=== PATIENT | male | born 1980 | race Caucasian/White ===

== ENCOUNTER 2020-09-18 11:30 | Outpatient (REF) | payer MEDICAID, SELFPAY | END 2020-09-18 11:31 | disposition home or self-care (01) | LOC: HO.LAB 11:30 | PROVIDERS: Visit Provider Internal Medicine | DX: Z20.822 Contact with and (suspected) exposure to COVID-19 (principal) | CPT/HCPCS: 36415; C9803; U0003 ==

== ENCOUNTER 2020-10-05 14:09 | Outpatient (REF) | payer MEDICAID, SELFPAY | END 2020-10-05 14:10 | disposition home or self-care (01) | LOC: HO.LAB 14:09 | PROVIDERS: Visit Provider Internal Medicine | DX: Z20.822 Contact with and (suspected) exposure to COVID-19 (principal) | CPT/HCPCS: 36415; C9803; U0003; U0005 ==

== ENCOUNTER 2024-03-21 11:09 | Outpatient (REF) | payer MEDICAID, SELFPAY ==
--- NOTE | ~2024-03-21 | XR_ITS ---
EXAMINATION: XR KNEE LEFT XR KNEE RIGHT CLINICAL INFORMATION: Acute nontraumatic bilateral knee pain. COMPARISON: None TECHNIQUE: Right knee, 3 views and left knee, 3 views FINDINGS: Right knee: Bones, joints and soft tissues have a normal appearance. No evidence of arthritic disease, fracture or joint effusion. Left knee: Bones, joints and soft tissues have a normal appearance. XR/XR knee RT 3V IMPRESSION: Normal radiographic examination of both knees.
--- NOTE | ~2024-03-21 | XR_ITS ---
EXAMINATION: XR KNEE LEFT XR KNEE RIGHT CLINICAL INFORMATION: Acute nontraumatic bilateral knee pain. COMPARISON: None TECHNIQUE: Right knee, 3 views and left knee, 3 views FINDINGS: Right knee: Bones, joints and soft tissues have a normal appearance. No evidence of arthritic disease, fracture or joint effusion. Left knee: Bones, joints and soft tissues have a normal appearance. XR/XR knee LT 3V IMPRESSION: Normal radiographic examination of both knees.
[2024-03-21 13:01] LABS: MANUAL DIFF FLAG NO
[2024-03-21 13:23] LABS: Basophils Percent Auto 0.3 % (0-2); Eosinophils Absolute Auto 0.1 X10*3/uL (0.0-0.4); Eosinophils Percent Auto 1.5 % (0-4); Hematocrit 48.4 % (42.0-52.0); Hemoglobin 16.6 g/dl (14.0-18.0); Imm Gran Abs Auto 0.01 X10*3/uL (0.00-0.03); Imm Gran Pct Auto 0.3 % (0.0-0.4); Lymphocytes Absolute Auto 1.3 X10*3/uL (1.2-4.9); Lymphocytes Percent Auto 32.8 % (20-40); Mean Corpuscular HGB Conc 34.3 g/dl (31.0-36.0); Mean Corpuscular Volume 93.4 fL (80.0-98.0); Mean Platelet Volume 10.8 fL (9.4-12.4); Monocytes Absolute Auto 0.5 X10*3/uL (0.1-1.2); Monocytes Percent Auto 11.7 % (2-11); Neutrophils Absolute Auto 2.1 x10*3/uL (2.0-8.3); Neutrophils Percent Auto 53.4 % (45-73); Platelet Count 225 X10*3/uL (160-400); Red Blood Count 5.18 X10*6/uL (4.60-5.80); Red Cell Distribution Width 11.9 % (11.0-16.0); White Blood Count 3.9 X10*3/uL (4.8-10.8)
[2024-03-21 13:34] LABS: Alanine Aminotransferase 15 U/L (0-40); Albumin Level 4.7 g/dL (3.5-5.0); Alkaline Phosphatase 79 U/L (39-117); Anion Gap 14 (12-20); Aspartate Amino Transferase 28 U/L (5-37); Bilirubin Total 0.5 mg/dL (0.0-1.0); Blood Urea Nitrogen 8 mg/dL (9-16); Calcium 9.6 mg/dL (8.4-10.2); Carbon Dioxide 28 mmol/L (22-29); Chloride 102 mmol/L (96-108); Estimated Glomerular Filt Rate > 60; Glucose Random 77 mg/dL (60-115); Potassium 4.2 mmol/L (3.3-5.1); Sodium 140 mmol/L (135-145); Total Protein 7.5 g/dL (6.5-8.0)
== END 2024-03-21 11:10 | disposition home or self-care (01) ==
LOC: HO.HHCL 11:09
PROVIDERS: Visit Provider Family Medicine
DX: M25.561 Pain in right knee (principal); M25.562 Pain in left knee
CPT/HCPCS: 36415; 73562; 80053; 85025

== ENCOUNTER 2024-10-11 08:43 | Outpatient (REF) | payer MEDICAID, SELFPAY ==
[2024-10-11 14:41] LABS: Alanine Aminotransferase 19 U/L (0-40); Albumin Level 4.6 g/dL (3.5-5.0); Alkaline Phosphatase 84 U/L (39-117); Anion Gap 12 (12-20); Aspartate Amino Transferase 33 U/L (5-37); Bilirubin Total 0.5 mg/dL (0.0-1.0); Blood Urea Nitrogen 10 mg/dL (9-16); Calcium 9.5 mg/dL (8.4-10.2); Carbon Dioxide 28 mmol/L (22-29); Chloride 102 mmol/L (96-108); Cholesterol 186 mg/dL (<200); Estimated Glomerular Filt Rate > 60; Glucose Random 68 mg/dL (60-115); HDL Cholesterol 73 mg/dL (>40); LDL Cholesterol Calculated 92 mg/dL (<100); Potassium 4.5 mmol/L (3.3-5.1); Sodium 137 mmol/L (135-145); Total Protein 7.7 g/dL (6.5-8.0); Triglycerides 107 mg/dL (<150)
[2024-10-11 14:42] LABS: Estimated Average Glucose 100 mg/dL; Hemoglobin A1C 135.0362 umol/L; Hemoglobin A1c % 5.1 % (<6.0); Total Hemoglobin (HGBA1C) 4151.7419 umol/L
[2024-10-11 15:01] LABS: TSH reflex Free T4 1.02 uIU/mL (0.32-4.0)
[2024-10-12 03:49] LABS: HIV AB/AG Nonreactive (Nonreactive); HIV Num 1 0.06 S/CO (0.00-0.99); ~HepC Num1 0.07 S/CO (0.00-0.79); ~Hepatitis C Antibody Nonreactive (Nonreactive)
== END 2024-10-11 08:44 | disposition home or self-care (01) ==
LOC: HO.CHCLDS 08:43
PROVIDERS: Visit Provider Internal Medicine
DX: Z00.00 Encounter for general adult medical examination without abnormal findings (principal)
CPT/HCPCS: 36415; 80053; 80061; 83036; 84443; 86803; 87389

== ENCOUNTER 2024-12-27 08:09 | Outpatient (REF) | payer MEDICAID, SELFPAY ==
[2025-01-02 12:44] LABS: Testosterone, Free 68.9 pg/mL (35.0-155.0); Testosterone, Total 355 ng/dL (250-1100)
== END 2024-12-27 08:10 | disposition home or self-care (01) ==
LOC: HO.CHCLDS 08:09
PROVIDERS: Visit Provider Internal Medicine
DX: R68.82 Decreased libido (principal)
CPT/HCPCS: 36415; 84402; 84403

== ENCOUNTER 2025-05-30 08:51 | Outpatient (REF) | payer MEDICAID, SELFPAY ==
--- OUTSIDE RECORDS SUMMARY | 2024-09-30 12:02 | XMS_ITS ---
Author Organization [facility] Address [address] [place] [address] Care Team Providers Care Kerrick Kleaner Operator Name Role Phone [facility] Primary Care Provider [phone] [facility], [facility] Unavailable [phone] REASON FOR VISIT Looking for appt Encounters Encounter Location Date Provider Diagnosis [facility] [address] [place], [place] [phone] 09/30/2024 [facility] Plan Of Treatment No Information Progress Notes * Christy TAPIAOB:1980 (44 yo F)Acc No.[id number]:09/30/2024 Patient: Marisel BRUNER :1980 A ge:44 Y S ex:Female Address:[address] [place] [address], [phone] * * Date:
--- OUTSIDE RECORDS SUMMARY | 2025-05-30 09:18 | XMS_ITS | Patient Health Record ---
Author Organization [facility] Address [address] [place] [address] Care Team Providers Care Software Licensing Specialist Name Role Phone [facility] Primary Care Provider [facility], [facility] Unavailable [phone] Reason For Referral No Information Encounters Encounter Location Date Provider Diagnosis [facility] [address] [place], [place] [phone] 09/30/2024 [facility] Plan Of Treatment No Information Insurance Providers Payer Name Payer Address Payer Phone Subscriber Number Group Number Insured Name Patient Relationship to Insured Coverage Start Date Coverage End Date [employer] [address] [place] [phone] [id number] Marisel Day Self - patient is the insured
[2025-05-30 15:08] LABS: Alanine Aminotransferase 26 U/L (0-40); Albumin Level 2.4 g/dL (3.5-5.0); Alkaline Phosphatase 89 U/L (39-117); Anion Gap 10 (12-20); Aspartate Amino Transferase 42 U/L (5-37); Blood Urea Nitrogen 13 mg/dL (9-16); Calcium 9.5 mg/dL (8.4-10.2); Carbon Dioxide 32 mmol/L (22-29); Chloride 103 mmol/L (96-108); Estimated Glomerular Filt Rate > 60; Magnesium 2.2 mg/dL (1.6-2.6); Potassium 4.7 mmol/L (3.3-5.1); Sodium 140 mmol/L (135-145); Total Protein 5.5 g/dL (6.5-8.0)
[2025-05-30 15:26] LABS: Folate 12.0 ng/mL (> or = 4.0); Vitamin B12 376 pg/mL (200-900)
== END 2025-05-30 08:52 | disposition home or self-care (01) ==
LOC: HO.CHCLDS 08:51
PROVIDERS: Visit Provider Internal Medicine
DX: F10.20 Alcohol dependence, uncomplicated (principal)
CPT/HCPCS: 36415; 80053; 82607; 82746; 83735; 84100; 84443

== ENCOUNTER 2025-07-03 11:14 | Outpatient (AMB) | payer SELFPAY ==
--- OUTSIDE RECORDS SUMMARY | 2024-09-30 11:02 | XMS_ITS ---
Author Organization [facility] Address [address] [place] [address] Care Team Providers Care Petroleum Analyst Name Role Phone [facility] Primary Care Provider [phone] [facility], [facility] Unavailable [phone] REASON FOR VISIT Looking for appt Encounters Encounter Location Date Provider Diagnosis [facility] [address] [place], [place] [id number] 09/30/2024 [facility] Plan Of Treatment No Information Progress Notes * Christy TAPIAOB:1980 (44 yo F)Acc No.[id number]:09/30/2024 Patient: Marisel BRUNER :1980 A ge:44 Y S ex:Female Address:[address] [place] [address], [phone] * * Date:
--- NOTE | 2025-07-03 11:18 | MHC.OFFVIS ---
Intake Visit Reasons: ICU TECH Intake Note: New patient presents for PVD. States it has been two months since his leg started cramping and swelling but has felt odd sensations and pain for about 4 months. Accompanied by: Other Relationship Allergies No Known Allergies Allergy (Verified 07/03/25 11:23) HPI HPI ICU TECH: Details: Pleasant 44-year-old gentleman patient presents for painful varicose veins. Complaints include pain over varicosities, swelling of lower extremities, cramping, fatigue, and heaviness of the lower extremities. 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 It is noted more so in left leg. Patient denies any previous venous surgery or injections. Patient denies any history of DVT/ PE. Patient denies any history of phlebitis. Trial of compression includes - [id number] They now present for vascular evaluation regarding their varicose veins. Review of Systems Const All systems reviewed & are unremarkable except as noted in HPI and below Reports no additional complaints ENT Reports Normal hearing present Card Denies chest pain, Denies chest pain at rest, Denies chest pain with activity and Denies pedal edema Resp Denies cough GI Denies abdominal pain Musc Denies abnormal gait, Denies muscle cramps and Denies radiating pain into limb Skin/Breast Denies skin ulcer and Denies wounds Neuro Reports Normal hearing present and Denies abnormal gait Psych Reports no additional complaints Physical Exam Const General: cooperative, healthy appearing and comfortable Orientation/consciousness: oriented to person, oriented to place and oriented to time HEENT Head: Yes normal to inspection Neck Neck: Yes normal visual inspection Carotids: no bruits Chest Chest palpation & inspection: normal inspection of the chest Resp Effort & Inspection: normal respiratory effort and able to speak in complete sentences Auscultation: clear to auscultation bilaterally, no crackles, no rales, no rhonchi and no wheezes Cardio Other: Bilateral palpable dorsalis pedis pulses Rate: regular rate Rhythm: regular rhythm Heart sounds: S1 normal heart sound present and S2 normal heart sound present Bruits: no carotid bruits Peripheral pulses: Peripheral pulses 2+ throughout GI Inspection: Yes normal to inspection Skin Wounds: no wounds Hair: normal Neuro General: oriented to person, oriented to place and oriented to time Cranial nerves: Yes CN's II-XII intact bilaterally and Yes Normal hearing present Cognition (Neuro): normal cognition Motor exam (neuro): 5/5 motor strength present throughout Extrem Other: venous exam: +1 edema with spider telangiectasias General: No clubbing, No cyanosis and Yes edema Psych Appearance: grossly normal Mental Status: mental status grossly normal Speech and movement: Normal speech and movement present Assessment & Plan Assessment & Plan (1) Varicose veins of right lower extremity with inflammation: Code(s): I83.11 - Varicose veins of right lower extremity with inflammation Category: Medical Plan: In short, the patient has evidence of venous insufficiency. I have discussed the pathophysiology with the patient. In addition I have provided informational material regarding venous disease to the patient. We have discussed conservative measures including compression, elevation, and exercise. I have also provided a handout regarding appropriate use of compression stockings and where to purchase good compression stockings as well. I have taken the liberty of ordering venous insufficiency testing with the patient. They will follow up with me after testing. The patient had an opportunity to ask questions regarding the treatment plan. All questions were answered. Imaging studies, laboratory studies and physical exam results were discussed and reviewed in detail. No major barriers to understanding were identified. The patient expressed understanding and agreement with the above treatment plan. The patient is aware they should contact our office by phone for worsening of the current condition or the appearance of new symptoms. Thank you for allowing me to participate in the vascular care of this patient. If you have any questions or concerns regarding the treatment for the above condition please do not hesitate to contact me. The office telephone contact is [phone]. This note is constructed using voice recognition software. While every effort has been made to ensure accuracy, software security architect errors may have been included. Thank you for allowing me to participate in the care of your patient. Yours sincerely, Bhargav Mayen MD, FACS, R.P.V.I. Orders: Orders US venous duplex LE BI Today I83.11 - Varicose veins of right lower extremity with inflammation Coding Level of Care Code New Pt Level 4 (18059) Diagnoses Varicose veins of right lower extremity with inflammation I83.11
--- OUTSIDE RECORDS SUMMARY | 2025-07-03 13:57 | XMS_ITS | Clinical Summary ---
Author Organization [facility] Address [address] [place] [address] Phone Care Team Providers Care New Vehicle Sales Consultant Name Role Phone Physician, Pcp Unknown Primary Care Provider Marilee vailable Allergies No known active allergies Medications diphenhydrAMINE (BENADRYL) 25 mg tablet Take 1 capsule by mouth every 4-6 hours as needed for itching. 24 tablet 07/17/2024 Active naproxen (NAPROSYN) 500 mg tablet Take 1 tablet (500 mg total) by mouth 2 (two) times a day with meals. 60 each 11/02/2024 Active methocarbamoL (ROBAXIN) 750 mg tablet Take 1 tablet (750 mg total) by mouth 4 (four) times a day for 10 days. 40 each 11/02/2024 Active Active Problems Problem Noted Date Diagnosed Date Current moderate episode of major depressive disorder without prior episode ([facility] V24, [facility] V28) 02/20/2025 Alcohol dependence ([facility] V24, [facility] V28) Low libido 10/10/2024 Urticaria 08/15/2024 Elevated BP without diagnosis of hypertension Encounters Date Type Department Care Team Description 05/21/2025 7:24 AM EDT - 05/21/2025 9:48 AM EDT Emergency [facility] Emergency [address] [place] [phone] Left leg pain (Primary Dx); Rudd cyst, left Discharge Disposition: Home or Self Care 04/26/2025 12:18 PM EDT - 04/26/2025 2:33 PM EDT Emergency [facility] Emergency [address] [place] [address] Pharyngitis, unspecified etiology (Primary Dx) Discharge Disposition: Home or Self Care from Last 3 Months Social History Tobacco Use Types Packs/Day Years Used Date Smoking Tobacco: Every Day Cigarettes Smokeless Tobacco: Never Tobacco Cessation:Ready to Q uit: Not Asked; Counseling Given: Not Answered Alcohol Use Standard Drinks/Week Comments Yes 35 (1 standard drink = 0.6 oz pu re alcohol) Sex and Gender Information Value Date Recorded Sex Assigned at Male 08/28/2024 7:01 PM EST Legal Sex Male 6:47 PM EST Gender Identity Male 08/28/2024 7:01 PM EST Sexual Orientation Straight 08/28/2024 7: 01 PM EST Obstetrics History Last Filed Vital Signs Vital Sign Reading Time Taken Comments Blood Pressure 120/90 05/21/2025 7:20 AM EDT Pulse 88 05/21/2025 7:20 AM EDT Temperature 36.4 C (97.6 F) 05/21/2025 7:20 AM EDT Respiratory Rate 17 05/21/2025 7:20 AM EDT Oxygen Saturation 97% 05/21/2025 7:20 AM EDT Inhaled Oxygen Concentration - - Weight 58.1 kg (128 lb) 05/21/2025 7:20 AM EDT Height 180.3 cm (5' 11 ) 05/21/2025 7:20 AM EDT Body Mass Index 17.85 05/21/2025 7:20 AM EDT Plan of Treatment Health Maintenance Due Date Last Done Comments DTaP,Tdap,and Td Vaccines (1 - Tdap) 2000 Hepatitis A Vaccines (1 of 2 - Risk 2-dose series) 2000 Hepatitis B Vaccines (1 of 3 - 19+ 3-dose series) 2000 Pneumococcal Vaccine: Pediat rics (0 to 5 Years) and At-Risk Patients (6 to 49 Years) (1 of 2 - PCV) 2000 HPV Vaccines (1 - 3-dose SCD M series) 2008 Social Influencers of Health Screening 07/30/2022 Depression Screening 08/28/2024 COVID-19 Vaccine ( - 2023-2 5 season) 2025 Influenza Vaccine (#1) 2025 Cholesterol Screening (Lipid Panel) 10/11/2029 10/11/2024 RSV Immunization Adult Patie nts (1 - 1-dose 75+ series) 2056 HIV Screening Completed 10/11/2024 Hepatitis C Screening Completed 10/11/2024 HIB Vaccines Aged Out No longer eligi ble based on patient's age to complete this topic IPV Vaccines Aged Out No longer eligi ble based on patient's age to complete this topic MMR Vaccines Aged Out No longer eligi ble based on patient's age to complete this topic Meningococcal ACWY Vaccine Aged Out N o longer eligible based on patient's age to complete this topic Meningococcal B Vaccine Aged Out No l onger eligible based on patient's age to complete this topic RSV Immunization Patients Un rich 20 months Aged Out No longer eligible b ased on patient's age to complete this topic Varicella Vaccines Aged Out No longer eligible based on patient's age to complete this topic Procedures Procedure Name Priority Date/Time Associated Diagnosis Comments XR KNEE 4+ VIEWS LEFT STAT 05/21/2025 8:44 AM EDT VAS US DUPLEX LOWER EXT VENOUS LEFT STAT 05/21/2025 8:16 AM EDT Left leg pain CULTURE THROAT STAT 04/26/2025 1:28 PM EDT RAPID STREP A SCREEN STAT 04/26/2025 1:28 PM EDT HVUA-PRX1-CEA, QUALITATIVE REAL-TIME RT-PCR, INTERNAL LAB STAT 04/26/2025 1:28 PM EDT from Last 3 Months Results * XR Knee 4+ Views Left (05/21/2025 8:44 AM EDT) Anatomical Region Laterality Modality Lower Extremities, Knee Left Radiogra [facility] 05/21/2025 9:12 AM EDT Impressions 05/21/2025 9:13 AM EDT No fracture or dislocation. [id number] -------- FINAL REPORT -------- Dictated By: Cathy Gil Dictated Date: 05/21/2025 09:12 ET Assigned Physician: Cathy Gil Reviewed and Electronically Signed By: Cathy Gil Signed Date: 05/21/2025 09:13 ET Workstation ID: [id number] Transcribed By: Self Edit Transcribed Date: 05/21/2025 09:12 ET Narrative 05/21/2025 9:13 AM EDT INDICATION: Knee pain FINDINGS: 4 views of the left knee were obtained. No prior studies available for comparison. Bones: No fracture or dislocation. Soft tissues: No soft tissue swelling. No joint effusion. Procedure Note Cathy Gil MD - 05/21/2025 INDICATION: Knee pain FINDINGS: 4 views of the left knee were obtained. No prior studiesavailable for comparison. Bones: No fracture or dislocation. Soft tissues: No soft tissue swelling. No joint effusion. IMPRESSION: No fracture or dislocation. [id number] -------- FINAL REPORT -------- Dictated By: Cathy Gil Dictated Date: 05/21/2025 09:12 ET Assigned Physician: Cathy Gil Reviewed and Electronically Signed By: Cathy Gil Signed Date: 05/21/2025 09:13 ET Workstation ID: [id number] Transcribed By: Self Edit Transcribed Date: 05/21/2025 09:12 ET us Brian [facility] IM[facility] XR PROCEDURES Final R esult * Vascular US duplex lower extremity venous left (05/21/2025 8:16 AM EDT) Anatomical Region Laterality Modality Vascular, Abdomen Ultrasound 05/21/2025 8:41 AM EDT Narrative 05/21/2025 8:42 AM EDT INDICATION: leg pain and swelling. FINDINGS: A duplex venous ultrasound was performed of the left lower extremity. The common femoral, femoral and popliteal veins demonstrate color-flow with augmentation and compressibility. The visualized calf veins also demonstrate color-flow. Slow flow noted within the left femoral vein. CONCLUSION: No evidence of deep vein thrombosis in left lower extremity. -------- FINAL REPORT -------- Dictated By: Cathy Gil Dictated Date: 05/21/2025 08:41 ET Assigned Physician: Cathy Gil Reviewed and Electronically Signed By: Cathy Gil Signed Date: 05/21/2025 08:42 ET Workstation ID: [id number] Transcribed By: Self Edit Transcribed Date: 05/21/2025 08:41 ET Procedure Note Cathy Gil MD - 05/21/2025 INDICATION: leg pain and swelling. FINDINGS: A duplex venous ultrasound was performed of the left lowerextremity. The common femoral, femoral and popliteal veins demonstratecolor-flow with augmentation and compressibility. The visualized calfveins also demonstrate color-flow. Slow flow noted within the left femoralvein. CONCLUSION: No evidence of deep vein thrombosis in left lower extremity. -------- FINAL REPORT -------- Dictated By: Cathy Gil Dictated Date: 05/21/2025 08:41 ET Assigned Physician: Cathy Gil Reviewed and Electronically Signed By: Cathy Gli Signed Date: 05/21/2025 08:42 ET Workstation ID: [id number] Transcribed By: Self Edit Transcribed Date: 05/21/2025 08:41 ET Maximilian Huitron MD CV VASCULAR PROCEDURES Final Res ult * RHKA-CPL1-SIC, qualitative RT-PCR, internal lab (04/26/2025 1:28 PM EDT) SARS COV-2 Not Detected Not Detected LAB MICROBIOLOGY METHOD 04/26/2025 2:25 PM EDT [facility] Swab Both anterior nares / Unknown Non-blood Collection / Unknown 04/26/2025 1:28 PM EDT 04/26/2025 1:50 PM EDT Narrative [facility] - 04/26/2025 2:25 PM EDT Disclaimer: The manner in which this information is used to guide patient care is the responsibility of the healthcare provider. Testing was performed using the [employer] GeneXpert Xpress CoV-2 Plus PCR Assay. This test has been authorized by the FDA under an Emergency Use Authorization (EUA). This test is only authorized for the duration of time the declaration that circumstances exist justifying the authorization of the emergency use of in vitro diagnostic tests for detection of SARS-CoV-2 virus and/or diagnosis of COVID-19 infection under section 564(b)(1) of the Act, 21 U.S.C. 360bbb-3 (b)(1), unless the authorization is terminated or revoked sooner. Reference Range: Not Detected Fact sheet for Healthcare providers can be found at: https://www.fda.gov/media/483311/download Fact sheet for Healthcare patients can be found at: Http;//www.fda.gov/media/883389/download Ish[facility] LAB MICROBIOLOGY - GENERAL ORDERABLES Final Result Performing Organization Address City/[facility]/ZIP Co de Phone Number [facility] [address] [place] [address], * Rapid Strep A Screen (04/26/2025 1:28 PM EDT) Strep A Ag Negative Negative, Invalid 04/26/2025 2:04 PM EDT [facility] Comment:Refer to Throat Cult ure. Swab Structure of anterior region of neck / Unknown Non-blood Collection / Unknown 04/26/2025 1:28 PM EDT 04/26/2025 1:50 PM EDT [facility] LAB MICROBIOLOGY - GENERAL ORDERABLES Final Result Performing Organization Address [facility]/ZIP Co de Phone Number [facility] [address] [place] [address], * Culture throat (04/26/2025 1:28 PM EDT) Culture, Throat No pathogens isolated. 04/28/2025 11:21 AM EDT [facility] Swab Structure of anterior region of neck / Unknown Non-blood Collection / Unknown 04/26/2025 1:28 PM EDT 04/26/2025 1:50 PM EDT us Ishmael [facility] LAB MICROBIOLOGY - GENERAL ORDERABLES Final Result [facility] [address] [place] [address], from Last 3 Months Insurance [facility] [employer] [address] [place] [address] Care Teams New Vehicle Sales Consultant Relationship Specialty Start Date End Date Physician, Pcp Unknown PCP - General 04/26/25
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
--- OUTSIDE RECORDS SUMMARY | 2025-07-03 13:57 | XMS_ITS | Patient Health Record ---
Author Organization [facility] Address [address] [place] [address] Care Team Providers Care Agricultural Services Director Name Role Phone [facility] Primary Care Provider [facility], [facility] Unavailable [phone] Reason For Referral No Information Encounters Encounter Location Date Provider Diagnosis [facility] [address] [place], [place] [id number] 09/30/2024 [facility] Plan Of Treatment No Information Insurance Providers Payer Name Payer Address Payer Phone Subscriber Number Group Number Insured Name Patient Relationship to Insured Coverage Start Date Coverage End Date [employer] [address] [place] [phone] [id number] Marisel Day Self - patient is the insured
--- OUTSIDE RECORDS SUMMARY | 2025-07-03 13:57 | XMS_ITS | Encounter Summary ---
Author Organization [employer] Address [address] [facility] 7t [place] [address] Care Team Providers Care Genetic Physician Name Role Phone Vikram Solis MD Primary Care Prov ider Reason for Visit * Reason Onset Date Comments Med Refill 11/14/2024 Encounter Details Date Type Department Care Team (Late st Contact Info) Description 11/14/2024 Telephone [facility] MEDICINE [address] [place] [address] Vikram Solis MD [address], [place] [phone] Med Refill Social History Tobacco Use Types Packs/Day Years [...] encounter Miscellaneous Notes * Telephone Encounter - Gurmeet Quiles - 11/14/2024 10:27 AM EDT TC from pt requesting medication refill. Medications needing refill : predniSONE (Deltasone) 10 MG tablet To be sent to: [facility]/pharmacy #[id number] - [place], [place] - [address] [place] [address] documented in this encounter Plan of Treatment Not on file documented as of this encounter Visit Diagnoses Not on filedocumented in this encounter Additional Health Concerns Assessment Noted Time PHQ-9 Depression Total Score: 0 08/15/20 8:58 AM EST documented as of this encounter Care Teams Genetic Physician Relationship Specialty Start Date End Date Vikram Solis MD [address] [place] [phone] PCP - General Internal Medicine 08/15/24 documented as of this encounter
--- OUTSIDE RECORDS SUMMARY | 2025-07-03 13:58 | XMS_ITS | Clinical Summary ---
Author Organization [employer] Address [address] [facility] 7t [place] [address] Care Team Providers Care Plywood Patcher Name Role Phone Vikram Solis MD Primary Care Prov ider Allergies No known active allergies Medications * This document contains information received from the source organization and may not represent a complete record from that organization. celecoxib (CeleBREX) 100 MG capsuleIndicati ons:Neck pain,Strain of neck muscle, initial encounter,Strai n of muscle, fascia and tendon of lower back, initial encounter,Contu ena of soft tissue TAKE 1 CAPSULE BY MOUTH TWICE A DAY 60 capsule 12/03/2024 Active benzocaine-ment hol (Chloraseptic) 6-10 MG lozengeIndicati ons:Sore throat (viral) Dissolve 1 lozenge in the mouth every 2 (two) hours if needed for sore throat. 100 lozenge 04/29/2025 04/29/20 26 Active meloxicam (Mobic) 15 MG tablet Take 1 tablet (15 mg) by mouth Once per day. 30 tablet 11 05/22/2025 05/22/20 26 Active gabapentin (Neurontin) 100 MG capsule Take 3 capsules (300 mg) by mouth every 8 (eight) hours. 270 capsule 1 05/22/2025 07/21/20 25 Active thiamine (Vitamin B-1) 100 MG tablet Take 1 tablet (100 mg) by mouth Once per day. 90 tablet 3 05/22/2025 05/22/20 26 Active folic acid (Folvite) 1 MG tablet Take 1 tablet (1 mg) by mouth Once per day. 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 Exam within normal limits Testing negative for Covid, Flu and Strep Likely viral etiology after recent trip Plan: Supportive measures, Throat lozenges, Tylenol PRN Asked to come back if symptoms worsen or do not improve Excuse for work given Current moderate episode of major depressive disorder without prior episode ([facility]) 02/20/2025 Assessment & Plan (05/29/2025 10:06 AM EDT): No suicidal/homicidal ideas, not interested in BH therapy, follow up as needed Assessment & Plan (02/20/2025 1:16 PM EDT): Will refer to BH, no suicidal homicidal ideas Low libido 10/10/2024 Assessment & Plan (02/20/2025 1:15 PM EDT): Most likely related to his depression, testosterone levels were normal Assessment & Plan (12/02/2024 11:41 AM EDT): Testosterone not performed, will call with results Assessment & Plan (10/10/2024 9:49 AM EST): Will order testosterone levels, routine labs ordered Alcohol dependence 10/10/2024 Assessment & Plan (10/10/2024 9:51 AM EST): Patient drinks 6-8 beer daily and 4-6 nips daily, not interested in alcohol group referral, wants to cut by himself, risk were discussed, benefits of alcohol dependence discussed, follow up as needed Encounter for medical examination to establish c are 08/15/2024 Assessment & Plan (08/15/2024 9:33 AM EST): Last pcp foollow up over 6 years Er visit: June due to skin rash went to [facility] Hospitalizations:- Pmhx:- Pshx:- All:- Meds:- Urticaria 08/15/2024 Assessment & Plan (12/02/2024 11:40 AM EDT): Provided information to schedule follow up with rural carrier associate, call back as needed Assessment & Plan (08/15/2024 9:37 AM EST): Patient refers has to visit er 2-3 times a year due to a skin rash, lesions are not currently active, will refer to rural carrier associate Elevated BP without diagnosis of hypertension Encounters Date Type Department Care Team Description 06/17/2025 11:15 AM EDT Office Visit [facility] MED & PEDS [address] [place] [address] Vikram Solis MD Swelling (Primary Dx) 06/17/2025 Travel 06/16/2025 Telephone [facility] MED & PEDS [address] [place] [address] Vikram Solis MD chart prep 06/10/2025 Patient Outreach [address] [address] Vikram Solis MD Pre-visit Planning (Pre visit planning LVM ) 06/10/2025 Orders Only [facility] MED & PEDS [address] [place] [address] Vikram Solis MD Atherosclerosis of [place] artery of both lower extremities with intermittent claudication (Primary Dx) 05/29/2025 9:30 AM EDT Telemedicine [facility] MED & PEDS [address] [place] [address] Vikram Solis MD Uncomplicated alcohol dependence (CMS/HCC) (HCC) (Primary Dx); Current moderate episode of major depressive disorder without prior episode (CMS/HCC) (HCC) 05/29/[address] [place] [address] Vikram Solis MD 05/29/2025 Telephone [facility] MEDICINE [address] [place] [address] Vikram Solis MD 05/29/2025 Travel 05/28/2025 Telephone [facility] MED & PEDS [address] [place] [address] Vikram Solis MD chart prep 05/23/2025 Telephone [facility] MED & PEDS [address] [place] [address] Vikram Solis MD Nurse Triage 05/22/2025 10:45 AM EDT Office Visit [facility] MED & PEDS [address] [place] [address] Vikram Solis MD Claudication (CMS/HCC) (Primary Dx) 05/22/2025 Travel 05/22/2025 Telephone [facility] MED & PEDS [address] [place] [address] Vikram Solis MD Nurse Triage 04/29/2025 2:20 PM EDT Office Visit [facility] WALK[facility] [address] [place] [phone] Griffin Flower MD Sore throat (viral) (Primary Dx) 04/29/2025 Travel 04/29/2025 Telephone [facility] MEDICINE [address] [place] [address] Vikram Solis MD ER Follow-up from Last 3 Months Immunizations Immunization Administration Dates Next Due Tdap 05/07/2010 Family History Medical History Relation Name Comments Hypertension Brother No Known Problems Father Fibromyalgia Mother HTN Mother Hyperlipidemia Mother Hypertension Mother Hypothyroidism Mother Hypertension Son Cancer Neg Hx Relation Name Status Comments Brother Father Mother Son Social History Tobacco Use Types Packs/Day Years Used Date Smoking Tobacco: Every Day Cigarettes 0.5 25.8 Started: 1999 Passive Smoke Exposure: Current Smokeless Tobacco: Never Tobacco Cessation:Ready to Q uit: Not Asked; Counseling Given: Not Answered Alcohol Use Standard Drinks/Week Comments Yes 0 (1 standard drink = 0.6 oz pur e alcohol) beer 6 daily x 3 years Depression Answer Date Recorded Patient Health Questionnaire-9 Score 4 06/17/2025 Patient Health Questionnaire-9 Score 4 06/17/2025 Last PHQ-9: Questionnaire Data Not on file 1 Housing Stability Answer Date Recorded What is your housing situation today? I have milton mcgill 06/17/[address] you li ve. Do you have problems with any of the following? None of the above 06/17/2025 Food Insecurity Answer Date Recorded Within the past 12 months, y ou worried that your food would run out before you got money to buy more: Never True 06/17/2025 Within the past 12 months,th e food you bought just didn't last and you didn't have enough money to get more: Never True Transportation Answer Date Recorded In the past 12 months, has l ack of transportation kept you from medical appts, meetings, work or from getting things needed for daily living? No 06/17/2025 Utilities Answer Date Recorded In the past 12 months, has t he electric, gas, oil or water company threatened to shut off services in your home? No 06/17/2025 Depression Answer Date Recorded Patient Health Questionnaire-2 Score 1 06/17/2025 Internet Access Answer Date Recorded Internet Access Q1 Yes 06/17/2025 Internet Access Q2 Not on file 06/17/2025 Sex and Gender Information Value Date Recorded Sex Assigned at Male 01/18/2023 11:10 AM EDT Legal Sex Male 11:06 AM EDT Gender Identity Male 01/18/2023 11:10 AM EDT Sexual Orientation Straight 01/18/2023 11 :10 AM EDT Last Filed Vital Signs Vital Sign Reading Time Taken Comments Blood Pressure 128/82 06/17/2025 11:50 AM EDT Pulse 76 06/17/2025 11:50 AM EDT Temperature 36.6 C (97.8 F) 06/17/2025 11:50 AM EDT Respiratory Rate 20 06/17/2025 11:50 AM EDT Oxygen Saturation 97% 05/22/2025 10:56 AM EDT Inhaled Oxygen Concentration - - Weight 59.4 kg (131 lb) 06/17/2025 11:50 AM EDT Height 177.8 cm (5' 10 ) 06/17/2025 11:50 AM EDT Body Mass Index 18.8 06/17/2025 11:50 AM EDT Plan of Treatment Health Maintenance Due Date Last Done Comments Dental Oral Exam 1981 Dental Prophylaxis 1981 Dental X-Ray: Bitewings 1981 Dental X-Ray: Full Mouth 1981 Family Planning (PISQ) 1996 HPV Vaccines (1 - Male 3-dos e series) 1996 Hepatitis B Vaccines (1 of 3 - 19+ 3-dose series) 2000 Pneumococcal Vaccine: Pediatrics (0 to 5 Years) and At-Risk Patients (6 to 49) Years (1 of 2 - PCV) 2000 DTaP/Tdap/Td Vaccines (2 - T d or Tdap) 05/07/2020 05/07/2010 COVID-19 Vaccine (1 - 2023-2 5 season) 2025 Influenza Vaccine (#1) 2025 Tobacco Screening 01/22/2026 01/22/2025 Alcohol/Substance Use Screening 06/17/2026 06/17/2025 Depression Screening 06/17/2026 06/17/2025, 06/17/2025 Disability Screening 06/17/2026 06/17/2025 SDOH Screening 06/17/2026 06/17/2025 Lipid Panel 10/11/2029 10/11/2024 Zoster Vaccines (1 of 2) 2031 RSV Patients and Patients Aged 60 years or older (1 - 1-dose 75+ series) 2056 HIV Screening Completed 10/11/2024 Hepatitis C Screening Completed 10/11/2024 HIB Vaccines Aged Out No longer eligi ble based on patient's age to complete this topic Hepatitis A Vaccines Aged Out No long er eligible based on patient's age to complete this topic IPV Vaccines Aged Out No longer eligi ble based on patient's age to complete this topic Meningococcal B Vaccine Aged Out No l onger eligible based on patient's age to complete this topic Meningococcal Vaccine Aged Out No kathy robina eligible based on patient's age to complete this topic RSV under 20 months Aged Out No longe r eligible based on patient's age to complete this topic Rotavirus Vaccines Aged Out No longer eligible based on patient's age to complete this topic Procedures Procedure Name Priority Date/Time Associated Diagnosis Comments PHOSPHATE ( PHOSPHORUS) Routine 05/30/2025 8:53 AM EDT Uncomplicated alcohol dependence (CMS/HCC) (HCC) MAGNESIUM Routine 05/30/2025 8:53 AM EDT Uncomplicated alcohol dependence (CMS/HCC) (HCC) VITAMIN B12/FOLATE, SERUM PANEL Routine 05/30/2025 8:53 AM EDT Uncomplicated alcohol dependence (CMS/HCC) (HCC) COMPREHENSIVE METABOLIC PANEL Routine 05/30/2025 8:53 AM EDT Uncomplicated alcohol dependence (CMS/HCC) (HCC) TSH W/REFLEX TO FT4 Routine 05/30/2025 8 :53 AM EDT Uncomplicated alcohol dependence (CMS/HCC) (HCC) HEPATITIS C AB W/REFL TO HCV RNA, QN, PCR Routine 10/11/2024 8:47 AM EST Annual physical exam HIV 1/2 ANTIGEN/ANTIBODY, FOURTH GENERATION W/RFL Routine 10/11/2024 8:47 AM EST Annual physical exam LIPID PANEL, STANDARD Routine 10/11/2024 8:47 AM EST Annual physical exam from Last 3 Months or Most Recently Relevant to Health Maintenance Results * Vitamin B12 (Cobalamin) and Folate Panel, Serum (05/30/2025 8:53 AM EDT) Vitamin B12 376 200 - 900 pg/mL [facility] Comment:NORMAL 200-900 PG/ML INDETERMINATE 160-199 PG/ML DEFICIENT < 160 PG/ML Folate 12.0 > or = 4.0 ng/mL [facility] Comment:Reference Values:> o r = 4.0 ng/mL< 4.0 ng/mL suggests folate deficiency Methotrexate, aminopterin and folinic acid(leucovorin) are chemotherapeutic agents whose molecularstructures are similar to folate; therefore, the Architectfolate assay cannot be used for patients using these drugs. Blood Venous blood specimen / Unknown 05/30/2025 8:53 AM EDT 05/30/2025 2:14 PM EDT Vikram Cox MD LAB BLOOD ORDERABL ES Final Result Performing Organization Address [facility] Co de Phone Number [facility] [address] [place] [phone] * TSH W/Reflex to FT4 (05/30/2025 8:53 AM EDT) TSH reflex Free T4 3.62 0.32 - 4.0 uIU/mL [facility] Blood Venous blood specimen / Unknown 05/30/2025 8:53 AM EDT 05/30/2025 2:14 PM EDT Vikram Cox MD LAB BLOOD ORDERABL ES Final Result Performing Organization Address [facility] de Phone Number [facility] [address] [place] [phone] * Phosphate (As Phosphorus) (05/30/2025 8:53 AM EDT) Phosphorus 4.0 2.7 - 4.5 mg/dL [facility] Blood Venous blood specimen / Unknown 05/30/2025 8:53 AM EDT 05/30/2025 2:14 PM EDT Vikram Cox MD LAB BLOOD ORDERABL ES Final Result Performing Organization Address [facility] de Phone Number [facility] [address] [place] [phone] * Magnesium (05/30/2025 8:53 AM EDT) Magnesium 2.2 1.6 - 2.6 mg/dL [facility] Blood Venous blood specimen / Unknown 05/30/2025 8:53 AM EDT 05/30/2025 2:14 PM EDT us Vikram Cox MD LAB BLOOD ORDERABL ES Final Result [facility] [address] [place] [phone] * (ABNORMAL) Comprehensive Metabolic Panel (05/30/2025 8:53 AM EDT) Sodium 140 135 - 145 mmol/L [facility] Potassium 4.7 3.3 - 5.1 mmol/L [facility] Chloride 103 96 - 108 mmol/L [facility] Carbon Dioxide 32(H) 22 - 29 mmol/L [facility] Anion Gap 10(L) 12 - 20 [facility] Urea Nitrogen (BUN) 13 9 - 16 mg/dL [facility] Creatinine, Serum 0.93 0.5 - 1.4 mg/dL [facility] Estimated Glomerular Filt Rate >60 [facility] Comment:Chronic Kidney Disea se: Estimated GFR < 60 mL/min/[id number] Kidney Disease: Estimated GFR < 15 mL/min/1.73m2 Glucose 73 60 - 115 mg/dL [facility] Calcium 9.5 8.4 - 10.2 mg/dL [facility] Bilirubin, Total 0.1 0.0 - 1.0 mg/dL [facility] Aspartate Amino Transferase 42(H) 5 - 37 U/L [facility] Alanine Aminotransferase 26 0 - 40 U/L [facility] Total Protein 5.5(L) 6.5 - 8.0 g/dL [facility] Albumin Level 2.4(L) 3.5 - 5.0 g/dL [facility] Alkaline Phosphatase 89 39 - 117 U/L [facility] Blood Venous blood specimen / Unknown 05/30/2025 8:53 AM EDT 05/30/2025 2:14 PM EDT Vikram Cox MD LAB BLOOD ORDERABL ES Final Result Performing Organization Address [facility]/ZIP Co de Phone Number [facility] [address] [place] [phone] * Hepatitis C Antibody with Reflex to HCV, RNA, Quantitative, Real-Time PCR (10/11/2024 8:47 AM EST) Hepatitis C Antibody Nonreactive Nonreactive [facility] Comment:Antibodies to HCV no t detected; does not exclude early acuteHCV infection. Blood Venous blood specimen / Unknown 10/11/2024 8:47 AM EST 10/11/2024 2:12 PM EST Vikram Cox MD LAB BLOOD ORDERABL ES Final Result Performing Organization Address [facility] de Phone Number [facility] [address] [place] [phone] * HIV-1/2 Antigen and Antibodies, Fourth Generation, with Reflexes (10/11/2024 8:47 AM EST) HIV AB/AG Nonreactive Nonreactive [facility] Comment:HIV-1 p24 Ag and/or HIV-1/HIV-2 Ab not detected.A test result that is nonreactive does not exclude thepossibility of exposure to or infection with HIV-1 and/orHIV-2. Nonreactive results in this assay for individualswith prior exposure to HIV-1 and/or HIV-2 may be due toantigen and antibody levels that are below the limit ofdetection of this assay.The Strikeface HIV Ag/Ab Combo assay result andsupplemental assay results should be interpreted inconjunction with the patient's clinical presentation,history and other laboratory results. If the results areinconsistent with clinical evidence, additional testing issuggested to confirm the result. Blood Venous blood specimen / Unknown 10/11/2024 8:47 AM EST 10/11/2024 2:12 PM EST us Vikram Cox MD LAB BLOOD ORDERABL ES Final Result Performing Organization Address [facility] Co de Phone Number [facility] [address] [place] [phone] * Lipid Panel, Standard (10/11/2024 8:47 AM EST) Triglycerides 107 <150 mg/dL [facility] Comment:Desirable Triglyceri de: less than 150 mg/dLBorderline High Triglyceride 150-199 mg/dLHigh Triglyceride: 200-499 mg/dLVery High Triglyceride: greater than or equal to 5OO mg/dL Cholesterol 186 <200 mg/dL [facility] Comment:Desirable Cholestero l: less than 200 mg/dLBorderline High Cholesterol: 200-239 mg/dLHigh Cholesterol: greater than 239 mg/dL LDL Cholesterol Calculated 92 <100 mg/dL [facility] Comment:Desirable LDL: less than 100 mg/dLNear Optimal/Above Optimal LDL: 110- 129 mg/dLBorderline High LDL: 130-159 mg/dLHigh LDL: 160-189 mg/dLVery High LDL: greater than or equal to 190 mg/dL HDL Cholesterol 73 >40 mg/dL [facility] Comment:Desirable HDL: great er than 40 mg/dL Note: This HDL assay may give artificially low results in patients with liver disease. Blood Venous blood specimen / Unknown 10/11/2024 8:47 AM EST 10/11/2024 2:12 PM EST us Vikarm Cox MD LAB BLOOD ORDERABL ES Final Result Performing Organization Address [facility]/ZIP Co de Phone Number [facility] [address] [place] [address] [phone] from Last 3 Months or Most Recently Relevant to Health Maintenance Insurance [facility] 2 [employer] DENTAL - [place] PARTIAL (MEDICAID) Care Teams Plywood Patcher Relationship Specialty Start Date End Date Vikram Solis MD [address] [place] [phone] PCP - General Internal Medicine 08/15/24
--- OUTSIDE RECORDS SUMMARY | 2025-07-03 13:58 | XMS_ITS | Encounter Summary ---
Author Organization [employer] Address [address] [place] [address] Care Team Providers Care Cap Sewer Name Role Phone Vikram Solis MD Primary Care Prov ider Reason for Visit * Reason Onset Date Comments Med Refill 08/30/2024 Encounter Details Date Type Department Care Team (Late st Contact Info) Description 08/30/2024 Refill [facility] MEDICINE [address] [place] [address] Vikram Solis MD [address] [place] [address] [phone] Urticaria Social History Tobacco Use Types Packs/Day Years [...] encounter Miscellaneous Notes * Telephone Encounter - Jackie Gill MD - 08/30/2024 1:25 PM EST This is a taper prednisone, not a refill * Telephone Encounter - Case Boone - 08/30/2024 11:10 AM EST TC from pt requesting medication refill : predniSONE (Deltasone) 10 MG tablet To be sent to: [facility]/pharmacy #[id number] documented in this encounter Plan of Treatment Not on file documented as of this encounter Visit Diagnoses Diagnosis Urticaria Unspecified urticaria documented in this encounter Additional Health Concerns Assessment Noted Time PHQ-9 Depression Total Score: 0 08/15/20 8:58 AM EST documented as of this encounter Care Teams Cap Sewer Relationship Specialty Start Date End Date Vikram Solis MD [address] [place] [phone] PCP - General Internal Medicine 08/15/24 documented as of this encounter
== END 2025-07-03 11:45 | disposition home or self-care (01) ==
PROVIDERS: Visit Provider Surgery Vascular Surgery
DX: I83.11 Varicose veins of right lower extremity with inflammation (principal)
CPT/HCPCS: 99204

== ENCOUNTER → 2025-07-03 11:14 | Outpatient (BNVA) | payer OTHER, SELFPAY | PROVIDERS: Visit Provider Surgery Vascular Surgery | DX: I83.11 Varicose veins of right lower extremity with inflammation (principal) | CPT/HCPCS: 99202 ==

== ENCOUNTER 2025-08-01 13:07 | Outpatient (REF) | payer OTHER, SELFPAY ==
--- NOTE | ~2025-08-01 | US_ITS ---
EXAMINATION: US LOWER EXTREMITY VENOUS (REFLUX EXAM), BILATERAL CLINICAL INFORMATION: Venous insufficiency COMPARISON: None. TECHNIQUE: Color flow triplex imaging and compression Doppler was performed to evaluate both the deep and the superficial systems bilaterally. To evaluate the superficial system, the examination was performed in the upright position. Color-flow Doppler ultrasound and compression ultrasound were utilized. In addition, maneuvers were utilized to demonstrate reflux. FINDINGS: 1. DEEP VENOUS ULTRASOUND OF THE RIGHT LOWER EXTREMITY: Common Femoral Vein: Compressible, normal respiratory variation and augmented flow. Femoral Vein: Compressible, normal color flow and augmentation. Popliteal Vein: Compressible, normal augmentation. Deep Reflux: There is no evidence of reflux in the deep system in either the common femoral vein, superficial femoral or the popliteal vein. 2. SUPERFICIAL ULTRASOUND WITH DOPPLER OF RIGHT LOWER EXTREMITY: GREAT SAPHENOUS VEIN: Saphenofemoral Junction: 0.4 cm; Reflux: 0 ms Proximal Thigh: 0.3 cm; Reflux: 0 ms Mid Thigh: 0.4 cm; Reflux: 0 ms Distal Thigh: 0.3 cm; Reflux: 0 ms At Knee: 0.3 cm; Reflux: 0 ms Below Knee/Proximal Calf: 0.2 cm; Reflux: 0 ms Mid Calf: 0.3 cm; Reflux: 0 ms Ankle/Distal Calf: 0.3 cm; Reflux: 0 ms Lateral accessory GREAT SAPHENOUS VEIN: Saphenofemoral Junction: 0.2 cm; Reflux: 0 ms Mid Thigh: 0.2 cm; Reflux: 0 ms SMALL SAPHENOUS VEIN: Drainage: Thigh extension Saphenopopliteal Junction: 0.4 cm; Reflux: 0 ms Mid calf: 0.2 cm; Reflux: 0 ms Distal: 0.2 cm; Reflux: 0 ms VEIN OF GIACOMINI: Size: NA cm Reflux: NA ms PERFORATORS: Location: Greater saphenous vein, mid thigh Size: 0.1 cm Reflux: 0 ms Location: Greater saphenous vein, proximal calf Size: 0.2 cm Reflux: 0 ms VARICOSITIES > 3mm: Location: None Imaged 3. DEEP VENOUS ULTRASOUND OF THE LEFT LOWER EXTREMITY: Common Femoral Vein: Compressible, normal respiratory variation and augmented flow. Femoral Vein: Compressible, normal color flow and augmentation. Popliteal Vein: Compressible, normal augmentation. Deep Reflux: Common femoral vein: 760 ms 4. SUPERFICIAL ULTRASOUND WITH DOPPLER OF LEFT LOWER EXTREMITY: GREAT SAPHENOUS VEIN: Saphenofemoral Junction: 0.5 cm; Reflux: 0 ms Proximal Thigh: 0.4 cm; Reflux: 0 ms Mid Thigh: 0.3 cm; Reflux: 2176 ms Distal Thigh: 0.2 cm; Reflux: 0 ms At Knee: 0.3 cm; Reflux: 0 ms Below Knee/Proximl calf: 0.2 cm; Reflux: 0 ms Mid Calf: 0.2 cm; Reflux: 0 ms Distal Calf/Ankle: 0.3 cm; Reflux: 0 ms Lateral accessory GREAT SAPHENOUS VEIN: Saphenofemoral Junction: 0.3 cm; Reflux: 0 ms Mid Thigh: 0.3 cm; Reflux: 0 ms SMALL SAPHENOUS VEIN: Drainage: Thigh extension Saphenopopliteal Junction: 0.3 cm; Reflux: 0 ms Mid calf: 0.2 cm; Reflux: 0 ms Distal calf: .1 cm; Reflux: 0 ms VEIN OF GIACOMINI: Size: 0.3 Reflux: 0 PERFORATORS: Location: Greater saphenous vein, proximal calf Size: 0.2 cm Reflux: 0 ms Location: Small saphenous vein, proximal calf Size: 0.2 cm Reflux: 0 ms VARICOSITIES > 3mm: Location: None Imaged US/US venous insuf bilat IMPRESSION: Right: No venous reflux is demonstrated. Left: Venous incompetence in the great saphenous vein, mid thigh. Reflux in the common femoral vein measured less than 1 second. Electronically signed by: Cornell Horner MD 08/01/2025 02:15 PM [facility]
--- OUTSIDE RECORDS SUMMARY | 2025-08-01 17:13 | XMS_ITS | Encounter Summary ---
Author Organization [employer] Address [address] [facility] [address] [place] [address] Care Team Providers Care Tuber Machine Operator Helper Name Role Phone Vikram Solis MD Primary Care Prov ider Reason for Visit * Reason Onset Date Comments Med Refill 11/14/2024 Encounter Details Date Type Department Care Team (Late st Contact Info) Description 11/14/2024 Telephone [facility] MEDICINE [address] [place] [address] Vikram Solis MD [address] [place], [place] [phone] Med Refill Social History Tobacco Use Types Packs/Day Years Used Date Smoking Tobacco: Every Day Cigarettes 0.5 25.9 Started: 1999 Passive Smoke Exposure: Current Smokeless [...] 10 MG tablet To be sent to: [facility]/pharmacy #[id number] - [place], [place] - [address] [facility] documented in this encounter Plan of Treatment Upcoming Encounters Date Type Department Care Team ([facility] st Contact Info) Description 08/04/2025 10:45 AM EST Telemedicine [facility] MED & PEDS [address] [place] [address] Vikram Solis MD [address] [place] [address] 08/19/2025 2:15 PM EST Office Visit [facility] ADULT DENTAL [address] [place] [address] Cale Calderon documented as of this encounter Visit Diagnoses Not on filedocumented in this encounter Additional Health Concerns Assessment Noted Time PHQ-9 Depression Total Score: 0 08/15/20 8:58 AM EST documented as of this encounter Care Teams Tuber Machine Operator Helper Relationship Specialty Start Date End Date Vikram Solis MD [address] [place] [address] PCP - General Internal Medicine 08/15/24 documented as of this encounter
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
--- OUTSIDE RECORDS SUMMARY | 2025-08-01 17:15 | XMS_ITS | Encounter Summary ---
Author Organization [employer] Address [address] [facility] 7t [place] [address] Care Team Providers Care Media Reconciliation Specialist Name Role Phone Vikram Solis MD Primary Care Prov ider Reason for Visit * Reason Onset Date Comments Med Refill 08/30/2024 Encounter Details Date Type Department Care Team (Late st Contact Info) Description 08/30/2024 Refill [facility] MEDICINE [address] [place] [address] Vikram Solis MD [address] [place] [address] [id number] Urticaria Social History Tobacco Use Types Packs/Day [...] 10 MG tablet To be sent to: [facility]/pharmacy #[id number] documented in this encounter Plan of Treatment Upcoming Encounters Date Type Department Care Team (Late st Contact Info) Description 08/04/2025 10:45 AM EST Telemedicine [facility] MED & PEDS [address] [place] [address] Vikram Solis MD [address] [place] [address] 08/19/2025 2:15 PM EST Office Visit [facility] ADULT DENTAL [address] [place] [address] Cale Calderon documented as of this encounter Visit Diagnoses Diagnosis Urticaria Unspecified urticaria documented in this encounter Additional Health Concerns Assessment Noted Time PHQ-9 Depression Total Score: 0 08/15/20 24 8:58 AM EST documented as of this encounter Care Teams Media Reconciliation Specialist Relationship Specialty Start Date End Date Vikram Solis MD [address] [place] [address] PCP - General Internal Medicine 08/15/24 documented as of this encounter
--- OUTSIDE RECORDS SUMMARY | 2025-08-01 17:15 | XMS_ITS | Encounter Summary ---
Author Organization [employer] Address [address] [facility] [address] 7[address] [place] [address] Care Team Providers Care Banquet Lead Name Role Phone Vikram Solis MD Primary Care Prov ider Reason for Visit * Reason Onset Date Comments Durable Medical Equipment 07/04/2025 Encounter Details Date Type Department Care Team (Late st Contact Info) Description 07/04/2025 Telephone [facility] MEDICINE [address] [place] [address] Vikram Solis MD [address] [place], [place] [phone] Durable Medical Equipment Social History Tobacco Use Types Packs/Day Years [...] encounter Miscellaneous Notes * Telephone Encounter - Rebecca Salgado LPN - 07/07/2025 1:02 PM EST Please review message below and advise, Please provide diagnosis code to support Tc fro pt requesting a new scrip for DME - lower extremity knee high compression stocking 15-20mmhhg DME was request by PCP on 06/17 * Telephone Encounter - Davina Delcid - 07/04/2025 9:22 AM EST Tc fro pt requesting a new scrip for DME - lower extremity knee high compression stocking 15-20mmhhg DME was request by PCP on 06/17 documented in this encounter Plan of Treatment Upcoming Encounters Date Type Department Care Team (Late st Contact Info) Description 08/04/2025 10:45 AM EST Telemedicine [facility] MED & PEDS [address] [place] [address] Vikram Solis MD [address] [place] [address] 08/19/2025 2:15 PM EST Office Visit [facility] ADULT DENTAL [address] [place] [address] Cale Calderon documented as of this encounter Visit Diagnoses Not on filedocumented in this encounter Additional Health Concerns Assessment Noted Time PHQ-9 Depression Total Score: 4 06/17/20 25 11:52 AM EDT documented as of this encounter Care Teams Banquet Lead Relationship Specialty Start Date End Date Vikram Solis MD [address] [place] [address] PCP - General Internal Medicine 08/15/24 documented as of this encounter
--- OUTSIDE RECORDS SUMMARY | 2025-08-01 17:15 | XMS_ITS | Encounter Summary ---
Author Organization [employer] Address [address] [facility] [address] [facility] [address] 7[address] [place] [address] Care Team Providers Care Raise Driller Name Role Phone Vikram Solis MD Primary Care Prov ider Encounter Details Date Type Department Care Team (Late st Contact Info) Description 08/01/2025 Orders Only [facility] External Provider, [facility] Social History Tobacco Use Types Packs/Day Years [...] AM EDT documented as of this encounter Plan of Treatment Upcoming Encounters Date Type Department Care Team (Late st Contact Info) Description 08/04/2025 10:45 AM EST Telemedicine [facility] MED & PEDS [address] [place], [place] [phone] Vikram Solis MD [address] [place] [address] 08/19/2025 2:15 PM EST Office Visit [facility] ADULT DENTAL [address] [place] [address] Cale Calderon documented as of this encounter Procedures Procedure Name Priority Date/Time Associated Diagnosis Comments [facility] US LOWER EXTREMITY VENOUS INSUFFICIENCY BILATERAL Routine 08/01/2025 1:29 PM EST documented in this encounter Results * [facility] US Lower Extremity Venous Insufficiency Bilateral (08/01/2025 1:29 PM EST) 08/01/2025 1:29 PM EST Narrative [facility] IM[facility]ING - 08/01/2025 2:17 PM EST [address] [address] Ultrasound Report Signed Patient: Marisel Day MR#: [id number] : 1980 Acct:[id number] Age/Sex: 44 / M ADM Date: 08/01/25 Loc: HO.US Attending Dr: Bhargav Mayen MD Ordering Physician: Bhargav Mayen MD Date of Service: 08/01/25 Procedure(s): US venous insuf bilat Accession Number(s): [id number] cc: Vikram Solis MD; Bhargav Mayen MD Reason for Exam: I83.11 - Varicose veins of right lower extremity with inflammation EXAMINATION: US LOWER EXTREMITY VENOUS (REFLUX EXAM), BILATERAL CLINICAL INFORMATION: Venous insufficiency COMPARISON: None. TECHNIQUE: Color flow triplex imaging and compression Doppler was performed to evaluate both the deep and the superficial systems bilaterally. To evaluate the superficial system, the examination was performed in the upright position. Color-flow Doppler ultrasound and compression ultrasound were utilized. In addition, maneuvers were utilized to demonstrate reflux. FINDINGS: 1. DEEP VENOUS ULTRASOUND OF THE RIGHT LOWER EXTREMITY: Common Femoral Vein: Compressible, normal respiratory variation and augmented flow. Femoral Vein: Compressible, normal color flow and augmentation. Popliteal Vein: Compressible, normal augmentation. Deep Reflux: There is no evidence of reflux in the deep system in either the common femoral vein, superficial femoral or the popliteal vein. 2. SUPERFICIAL ULTRASOUND WITH DOPPLER OF RIGHT LOWER EXTREMITY: GREAT SAPHENOUS VEIN: Saphenofemoral Junction: 0.4 cm; Reflux: 0 ms Proximal Thigh: 0.3 cm; Reflux: 0 ms Mid Thigh: 0.4 cm; Reflux: 0 ms Distal Thigh: 0.3 cm; Reflux: 0 ms At Knee: 0.3 cm; Reflux: 0 ms Below Knee/Proximal Calf: 0.2 cm; Reflux: 0 ms Mid Calf: 0.3 cm; Reflux: 0 ms Ankle/Distal Calf: 0.3 cm; Reflux: 0 ms Lateral accessory GREAT SAPHENOUS VEIN: Saphenofemoral Junction: 0.2 cm; Reflux: 0 ms Mid Thigh: 0.2 cm; Reflux: 0 ms SMALL SAPHENOUS VEIN: Drainage: Thigh extension Saphenopopliteal Junction: 0.4 cm; Reflux: 0 ms Mid calf: 0.2 cm; Reflux: 0 ms Distal: 0.2 cm; Reflux: 0 ms VEIN OF GIACOMINI: Size: NA cm Reflux: NA ms PERFORATORS: Location: Greater saphenous vein, mid thigh Size: 0.1 cm Reflux: 0 ms Location: Greater saphenous vein, proximal calf Size: 0.2 cm Reflux: 0 ms VARICOSITIES > 3mm: Location: None Imaged 3. DEEP VENOUS ULTRASOUND OF THE LEFT LOWER EXTREMITY: Common Femoral Vein: Compressible, normal respiratory variation and augmented flow. Femoral Vein: Compressible, normal color flow and augmentation. Popliteal Vein: Compressible, normal augmentation. Deep Reflux: Common femoral vein: 760 ms 4. SUPERFICIAL ULTRASOUND WITH DOPPLER OF LEFT LOWER EXTREMITY: GREAT SAPHENOUS VEIN: Saphenofemoral Junction: 0.5 cm; Reflux: 0 ms Proximal Thigh: 0.4 cm; Reflux: 0 ms Mid Thigh: 0.3 cm; Reflux: 2176 ms Distal Thigh: 0.2 cm; Reflux: 0 ms At Knee: 0.3 cm; Reflux: 0 ms Below Knee/Proximl calf: 0.2 cm; Reflux: 0 ms Mid Calf: 0.2 cm; Reflux: 0 ms Distal Calf/Ankle: 0.3 cm; Reflux: 0 ms Lateral accessory GREAT SAPHENOUS VEIN: Saphenofemoral Junction: 0.3 cm; Reflux: 0 ms Mid Thigh: 0.3 cm; Reflux: 0 ms SMALL SAPHENOUS VEIN: Drainage: Thigh extension Saphenopopliteal Junction: 0.3 cm; Reflux: 0 ms Mid calf: 0.2 cm; Reflux: 0 ms Distal calf: .1 cm; Reflux: 0 ms VEIN OF GIACOMINI: Size: 0.3 Reflux: 0 PERFORATORS: Location: Greater saphenous vein, proximal calf Size: 0.2 cm Reflux: 0 ms Location: Small saphenous vein, proximal calf Size: 0.2 cm Reflux: 0 ms VARICOSITIES > 3mm: Location: None Imaged US/US venous insuf bilat IMPRESSION: Right: No venous reflux is demonstrated. Left: Venous incompetence in the great saphenous vein, mid thigh. Reflux in the common femoral vein measured less than 1 second. Electronically signed by: Cornell Horner MD 08/01/2025 02:15 PM [facility] Dictated By: Cornell Horner MD Signed By: <Electronically signed by Cornell Horner MD in OV> 08/01/25 1415 DD/ 1329 TD/TT: 08/01/25 1355 Supervisor Photostat: Procedure Note Donotuseinterpreter, Image - 08/01/[address] [address] Ultrasound Report Signed Patient: Kyara Day#: [id number] : 1980Acct:[id number] Age/Sex: 44 / MADM Date: 08/01/25 Loc: HO. Attending Dr: Bhargav Mayen MD Ordering Physician: Bhargav Mayen MD Date of Service: 08/01/25 Procedure(s): US venous insuf bilat Accession Number(s): [id number] cc: Vikram Solis MD; Bhargav Mayen MD Reason for Exam: I83.11 - Varicose veins of right lower extremity withinflammation EXAMINATION: US LOWER EXTREMITY VENOUS (REFLUX EXAM), BILATERAL CLINICAL INFORMATION: Venous insufficiency COMPARISON: None. TECHNIQUE: Color flow triplex imaging and compression Doppler was performed to evaluate both the deep and the superficial systems bilaterally. To evaluate the superficial system, the examination was performed in the upright position. Color-flow Doppler ultrasound and compression ultrasound were utilized. In addition, maneuvers were utilized to demonstrate reflux. FINDINGS: 1. DEEP VENOUS ULTRASOUND OF THE RIGHT LOWER EXTREMITY: Common Femoral Vein: Compressible, normal respiratory variation and augmented flow. Femoral Vein: Compressible, normal color flow and augmentation. Popliteal Vein: Compressible, normal augmentation. Deep Reflux: There is no evidence of reflux in the deep system in either the common femoral vein, superficial femoral or the popliteal vein. 2. SUPERFICIAL ULTRASOUND WITH DOPPLER OF RIGHT LOWER EXTREMITY: GREAT SAPHENOUS VEIN: Saphenofemoral Junction: 0.4 cm; Reflux: 0 ms Proximal Thigh: 0.3 cm; Reflux: 0 ms Mid Thigh: 0.4 cm; Reflux: 0 ms Distal Thigh: 0.3 cm; Reflux: 0 ms At Knee: 0.3 cm; Reflux: 0 ms Below Knee/Proximal Calf: 0.2 cm; Reflux: 0 ms Mid Calf: 0.3 cm; Reflux: 0 ms Ankle/Distal Calf: 0.3 cm; Reflux: 0 ms Lateral accessory GREAT SAPHENOUS VEIN: Saphenofemoral Junction: 0.2 cm; Reflux: 0 ms Mid Thigh: 0.2 cm; Reflux: 0 ms SMALL SAPHENOUS VEIN: Drainage: Thigh extension Saphenopopliteal Junction: 0.4 cm; Reflux: 0 ms Mid calf: 0.2 cm; Reflux: 0 ms Distal: 0.2 cm; Reflux: 0 ms VEIN OF GIACOMINI: Size: NA cm Reflux: NA ms PERFORATORS: Location: Greater saphenous vein, mid thigh Size: 0.1 cm Reflux: 0 ms Location: Greater saphenous vein, proximal calf Size: 0.2 cm Reflux: 0 ms VARICOSITIES > 3mm: Location: None Imaged 3. DEEP VENOUS ULTRASOUND OF THE LEFT LOWER EXTREMITY: Common Femoral Vein: Compressible, normal respiratory variation and augmented flow. Femoral Vein: Compressible, normal color flow and augmentation. Popliteal Vein: Compressible, normal augmentation. Deep Reflux: Common femoral vein: 760 ms 4. SUPERFICIAL ULTRASOUND WITH DOPPLER OF LEFT LOWER EXTREMITY: GREAT SAPHENOUS VEIN: Saphenofemoral Junction: 0.5 cm; Reflux: 0 ms Proximal Thigh: 0.4 cm; Reflux: 0 ms Mid Thigh: 0.3 cm; Reflux: 2176 ms Distal Thigh: 0.2 cm; Reflux: 0 ms At Knee: 0.3 cm; Reflux: 0 ms Below Knee/Proximl calf: 0.2 cm; Reflux: 0 ms Mid Calf: 0.2 cm; Reflux: 0 ms Distal Calf/Ankle: 0.3 cm; Reflux: 0 ms Lateral accessory GREAT SAPHENOUS VEIN: Saphenofemoral Junction: 0.3 cm; Reflux: 0 ms Mid Thigh: 0.3 cm; Reflux: 0 ms SMALL SAPHENOUS VEIN: Drainage: Thigh extension Saphenopopliteal Junction: 0.3 cm; Reflux: 0 ms Mid calf: 0.2 cm; Reflux: 0 ms Distal calf: .1 cm; Reflux: 0 ms VEIN OF GIACOMINI: Size: 0.3 Reflux: 0 PERFORATORS: Location: Greater saphenous vein, proximal calf Size: 0.2 cm Reflux: 0 ms Location: Small saphenous vein, proximal calf Size: 0.2 cm Reflux: 0 ms VARICOSITIES > 3mm: Location: None Imaged US/US venous insuf bilat IMPRESSION: Right: No venous reflux is demonstrated. Left: Venous incompetence in the great saphenous vein, mid thigh. Reflux in the common femoral vein measured less than 1 second. Electronically signed by: Cornell Horner MD 08/01/2025 02:15 PM [facility] [place] Dictated By: Cornell Horner MD Signed By: <Electronically signed by Cornell Horner MD in OV> 08/01/25 1415 DD/ 1329 TD/TT: 08/01/25 1355 Supervisor Photostat: [facility] External Provider CV VASC ULAR PROCEDURES Final Result [facility] [address] [place] [address] documented in this encounter Visit Diagnoses Not on filedocumented in this encounter Additional Health Concerns Assessment Noted Time PHQ-9 Depression Total Score: 4 06/17/20 25 11:52 AM EDT documented as of this encounter Care Teams Raise Driller Relationship Specialty Start Date End Date Vikram Solis MD [address] [place] [id number] PCP - General Internal Medicine 08/15/24 documented as of this encounter
--- OUTSIDE RECORDS SUMMARY | 2025-08-01 17:15 | XMS_ITS | Encounter Summary ---
Author Organization [employer] Address [address] [facility] [address] [facility] [address] [place] [address] Care Team Providers Care Senior Product Integrity Engineer Name Role Phone Vikram Solis MD Primary Care Prov ider Encounter Details Date Type Department Care Team ([facility] st Contact Info) Description 08/01/2025 Telephone [facility]S [address] [place], [place] [phone] Vikram Solis MD [address] [place], [place] [phone] Social History Tobacco Use Types Packs/Day Years [...] encounter Miscellaneous Notes * Telephone Encounter - Maryuri Martinez RN - 08/01/2025 12:33 PM EST Called pt regarding request to extend his FMLA, spoke to pt thorough [employer] Technician. Pt states continues with PT and Cardiology appts, and needs a little more time. Given TC appointment with PCP Monday at 10:45 to discuss. Pt understands and agrees with plan. * Telephone Encounter - Chung Gentile - 08/01/2025 12:19 PM EST Tc from pt requesting for the medical leave to be extended. Pt needs to go back on 08/14, but needs to do PT two times a day plus the cardiology apts. Any questions contact pt at [phone] documented in this encounter Plan of Treatment Upcoming Encounters Date Type Department Care Team (Late st Contact Info) Description 08/04/2025 10:45 AM EST Telemedicine [facility] [address] [place] [address] Vikram Solis MD [address] [place] [address] 08/19/2025 2:15 PM EST Office Visit [facility] AD[facility]AL [address] [place] [address] Cale Calderon documented as of this encounter Visit Diagnoses Not on filedocumented in this encounter Additional Health Concerns Assessment Noted Time PHQ-9 Depression Total Score: 4 06/17/20 25 11:52 AM EDT documented as of this encounter Care Teams Senior Product Integrity Engineer Relationship Specialty Start Date End Date Vikram Solis MD [address] [place] [address] PCP - General Internal Medicine 08/15/24 documented as of this encounter
--- OUTSIDE RECORDS SUMMARY | 2025-08-01 17:15 | XMS_ITS | Clinical Summary ---
Author Organization [employer] Address [address] [facility] [address] [place] [address] Care Team Providers Care Equipment Monitor Phototypesetting Name Role Phone Vikram Solis MD Primary [...] 8 (eight) hours. 270 capsule 1 05/22/2025 Active thiamine (Vitamin B-1) 100 MG tablet Take 1 tablet (100 mg) by mouth Once per day. 90 tablet 3 05/22/2025 05/22/20 26 Active folic acid (Folvite) 1 MG tablet Take 1 tablet (1 mg) by mouth Once per day. 90 tablet 3 05/22/2025 05/22/20 26 Active Active Problems Problem Noted Date Diagnosed Date Pain in both lower extremities 07/07/2025 Assessment & Plan (07/07/2025 10:53 AM EST): Chronic lower extremity pain, will refer to ortho and pt Swelling 06/17/2025 Assessment & Plan (07/07/2025 10:52 AM EST): Chronic lower extremity pain and swelling, pending compression stocking, following vascular surgery, will extend FMLA for another month Assessment & Plan (06/17/2025 1:24 PM EDT): Will order bilateral lower extremity knee high compression stocking [id number] Atherosclerosis of mi'kmaq ar hussein of both lower extremities with [...] of major depressive disorder without prior episode ([facility]) 02/20/2025 Assessment & Plan (05/29/2025 10:06 AM [...] June due to skin rash went to [facility] Hospitalizations:- Pmhx:- Pshx:- All:- Meds:- Urticaria 08/15/2024 Assessment & Plan (12/02/2024 11:40 AM EDT): Provided information to schedule follow up with box stamper, call back as needed Assessment & Plan (08/15/2024 9:37 AM EST): Patient refers has to visit er 2-3 times a year due to a skin rash, lesions are not currently active, will refer to box stamper Elevated BP without diagnosis of hypertension Encounters Date Type Department Care Team Description 08/01/2025 Orders Only [facility] External Provider, [facility] 08/01/2025 Telephone [facility] [address] [place] [address] Vikram Solis MD 07/07/2025 10:30 AM EST Telemedicine [facility] [address] [place] [address] Vikram Solis MD Swelling (Primary Dx); Pain in both lower extremities 07/07/2025 Travel 07/04/2025 Telephone [facility] [address] [place] [address] Vikram Solis MD chart prep 07/04/2025 Telephone [facility] [address] [place] [address] Vikram Solis MD Durable Medical Equipment 06/17/2025 11:15 AM EDT Office Visit [facility] [address] [place] [address] Vikram Solis MD Swelling (Primary Dx) 06/17/2025 Travel 06/16/2025 Telephone [facility] [address] [place] [address] Vikram Solis MD chart prep 06/10/2025 Patient Outreach [address] [address] Vikram Solis MD Pre-visit Planning (Pre visit planning LVM ) 06/10/2025 Orders Only [facility] [address] [place] [phone] Vikram Solis MD Atherosclerosis of mi'kmaq artery of both lower extremities with intermittent claudication (Primary Dx) 05/29/2025 9:30 AM EDT Telemedicine [facility] [address] [place] [address] Vikram Solis MD Uncomplicated alcohol dependence (CMS/HCC) (HCC) (Primary Dx); Current moderate episode of major depressive disorder without prior episode (CMS/HCC) (HCC) 05/29/[address] [address] Vikram Solis MD 05/29/[address] [address] Vikram Solis MD 05/29/2025 Travel 05/28/2025 Telephone [facility] [address] [place] [address] Vikram Solis MD chart prep 05/23/2025 Telephone [facility] [address] [place] [address] Vikram Solis MD Nurse Triage 05/22/2025 10:45 AM EDT Office Visit [facility] [address] [place] [address] Vikram Solis MD Claudication (CMS/HCC) (Primary Dx) 05/22/2025 Travel 05/22/2025 Telephone [facility] [address] [place], [place] [phone] Vikram Solis MD Nurse Triage from Last 3 Months Immunizations Immunization Administration [...] is your housing situation today? I have [facility] 06/17/[address] you [...] 06/17/2025 11:50 AM EDT Plan of Treatment Upcoming Encounters Date Type Department Care Team (Late st Contact Info) Description 08/04/2025 10:45 AM EST Telemedicine [facility] [address] [place] [address] Vikram Solis MD [address] [place] [address] 08/19/2025 2:15 PM EST Office Visit [facility] [address] [place] [address] Cale Calderon Health Maintenance Due Date Last Done Comments [...] Tdap) 05/07/2020 05/07/2010 COVID-19 Vaccine (1 - 2024-2 6 season) 2025 Influenza Vaccine (#1) 2025 Tobacco [...] Procedure Name Priority Date/Time Associated Diagnosis Comments VASC US LOWER EXTREMITY VENOUS INSUFFICIENCY BILATERAL Routine 08/01/2025 1:29 PM EST PHOSPHATE ( PHOSPHORUS) Routine 05/30/2025 8:53 AM [...] Recently Relevant to Health Maintenance Results * VASC US Lower Extremity Venous Insufficiency Bilateral (08/01/2025 1:29 PM EST) 08/01/2025 1:29 PM EST [facility] IMAGING - 08/01/2025 2:17 PM EST [place] [address] Ultrasound Report Signed Patient: Marisel Day MR#: [id number] : 1980 Acct:[id number] Age/Sex: 44 / M ADM Date: 08/01/25 Loc: HO.US Attending Dr: Bhargav Mayen MD Ordering Physician: Bhargav Mayen MD Date of Service: 08/01/25 Procedure(s): US venous insuf bilat Accession Number(s): [id number] cc: Vikram Solis MD; Bhargav Mayen MD [...] by: Cornell Horner MD 08/01/2025 02:15 PM [facility] Dictated By: Cornell Horner MD Signed By: <Electronically signed by Cornell Horner MD in OV> 08/01/25 1415 DD/ 1329 TD/TT: 08/01/25 1355 Costumer: Procedure Note Donotuseinterpreter, Image - 08/01/[address] [address] Ultrasound Report Signed Patient: Misti DayWIR#: [id number] : 1980Acct:[id number] Age/Sex: 44 / MADM Date: 08/01/25 Loc: .US Attending Dr: Bhargav Mayen MD Ordering Physician: Bhargav Mayen MD Date of Service: 08/01/25 Procedure(s): US venous insuf bilat Accession Number(s): [id number] cc: Vikram Solis MD; Bhargav Mayen MD [...] by: Cornell Horner MD 08/01/2025 02:15 PM [facility] Dictated By: Cornell Horner MD Signed By: <Electronically signed by Cornell Horner MD in OV> 08/01/25 1415 DD/ 1329 TD/TT: 08/01/25 1355 Costumer: us [facility] External Provider CV VASC ULAR PROCEDURES Final Result [facility] [address] [place] [phone] * Vitamin B12 (Cobalamin) and Folate Panel, Serum (05/30/2025 8:53 AM EDT) Vitamin B12 376 200 - 900 pg/mL [facility] Comment:NORMAL 200-900 PG/ML INDETERMINATE 160-199 PG/ML DEFICIENT < 160 PG/ML Folate 12.0 > or = 4.0 ng/mL [facility] Comment:Reference Values:> o r = 4.0 [...] ORDERABL ES Final Result Performing Organization Address City/[facility]/ZIP Co de Phone Number [facility] [address] [place] [phone] * TSH W/Reflex to FT4 (05/30/2025 8:53 AM EDT) Pathologist [facility] TSH reflex Free T4 3.62 0.32 - 4.0 uIU/mL [facility] Blood Venous blood specimen / Unknown 05/30/2025 8:53 AM EDT 05/30/2025 2:14 PM EDT Vikram Cox MD LAB BLOOD ORDERABL ES Final Result Performing Organization Address City/[facility]/ZIP Co de Phone Number [facility] [address] [place] [phone] * Phosphate (As Phosphorus) (05/30/2025 8:53 AM EDT) Phosphorus 4.0 2.7 - 4.5 mg/dL [facility] Blood Venous blood specimen / Unknown 05/30/2025 8:53 AM EDT 05/30/2025 2:14 PM EDT Vikram Cox MD LAB BLOOD ORDERABL ES Final Result Performing Organization Address [facility] Co de Phone Number [facility] [address] [place] [phone] * Magnesium (05/30/2025 8:53 AM EDT) Pathologist [facility] Magnesium 2.2 1.6 - 2.6 mg/dL [facility] Blood Venous blood specimen / Unknown 05/30/2025 8:53 AM EDT 05/30/2025 2:14 PM EDT Vikram Cox MD LAB BLOOD ORDERABL ES Final Result Performing Organization Address [facility] Co de Phone Number [facility] [address] [place] [phone] * (ABNORMAL) Comprehensive Metabolic Panel (05/30/2025 8:53 AM EDT) Pathologist [facility] Sodium 140 135 - 145 mmol/L [facility] Potassium 4.7 3.3 - 5.1 mmol/L [facility] Chloride 103 96 - 108 mmol/L [facility] Carbon Dioxide 32(H) 22 - 29 mmol/L [facility] Anion Gap 10(L) 12 - 20 [facility] Urea Nitrogen (BUN) 13 9 - 16 mg/dL [facility] Creatinine, Serum 0.93 0.5 - 1.4 mg/dL [facility] Estimated Glomerular Filt Rate >60 [facility] Comment:Chronic Kidney Disea se: Estimated GFR < 60 mL/min/[id number] Kidney Disease: Estimated GFR < 15 mL/min/1.73m2 Glucose 73 60 - 115 mg/dL [facility] Calcium 9.5 8.4 - 10.2 mg/dL [facility] Bilirubin, Total 0.1 0.0 - 1.0 mg/dL [facility] Aspartate Amino Transferase 42(H) 5 - 37 U/L [facility] Alanine Aminotransferase 26 0 - 40 U/L [facility] Total Protein 5.5(L) 6.5 - 8.0 g/dL [facility] Albumin Level 2.4(L) 3.5 - 5.0 g/dL [facility] Alkaline Phosphatase 89 39 - 117 U/L [facility] Blood Venous blood specimen / Unknown 05/30/2025 8:53 AM EDT 05/30/2025 2:14 PM EDT Vikram Cox MD LAB BLOOD ORDERABL ES Final Result Performing Organization Address [facility] Co de Phone Number [facility] [address] [place] [phone] * Hepatitis C Antibody with Reflex to HCV, RNA, Quantitative, Real-Time PCR (10/11/2024 8:47 AM EST) Hepatitis C Antibody Nonreactive Nonreactive [facility] Comment:Antibodies to HCV no t detected; does not exclude early acuteHCV infection. Blood Venous blood specimen / Unknown 10/11/2024 8:47 AM EST 10/11/2024 2:12 PM EST Vikram Cox MD LAB BLOOD ORDERABL ES Final Result Performing Organization Address [facility] Co de Phone Number [facility] [address] [place] [phone] * HIV-1/2 Antigen and Antibodies, Fourth Generation, with Reflexes (10/11/2024 8:47 AM EST) HIV AB/AG Nonreactive Nonreactive [facility] Comment:HIV-1 p24 Ag and/or HIV-1/HIV-2 Ab not detected.A test result that is nonreactive does not exclude thepossibility of exposure to or infection with HIV-1 and/orHIV-2. Nonreactive results in this assay for individualswith prior exposure to HIV-1 and/or HIV-2 may be due toantigen and antibody levels that are below the limit ofdetection of this assay.The [employer] HIV Ag/Ab Combo assay result andsupplemental assay results should be interpreted inconjunction with the patient's clinical presentation,history and other laboratory results. If the results areinconsistent with clinical evidence, additional testing issuggested to confirm the result. Blood Venous blood specimen / Unknown 10/11/2024 8:47 AM EST 10/11/2024 2:12 PM EST us Vikram Cox MD LAB BLOOD ORDERABL ES Final Result [facility] [address], [place] [phone] * Lipid Panel, Standard (10/11/2024 8:47 AM EST) Triglycerides 107 <150 mg/dL [facility] Comment:Desirable Triglyceri de: less than 150 mg/dLBorderline High Triglyceride 150-199 mg/dLHigh Triglyceride: 200-499 mg/dLVery High Triglyceride: greater than or equal to 5OO mg/dL Cholesterol 186 <200 mg/dL [facility] Comment:Desirable Cholestero l: less than 200 mg/dLBorderline High Cholesterol: 200-239 mg/dLHigh Cholesterol: greater than 239 mg/dL LDL Cholesterol Calculated 92 <100 mg/dL [facility] Comment:Desirable LDL: less than 100 mg/dLNear Optimal/Above Optimal LDL: 110- 129 mg/dLBorderline High LDL: 130-159 mg/dLHigh LDL: 160-189 mg/dLVery High LDL: greater than or equal to 190 mg/dL HDL Cholesterol 73 >40 mg/dL [facility] Comment:Desirable HDL: great er than 40 mg/dL Note: This HDL assay may give artificially low results in patients with liver disease. Blood Venous blood specimen / Unknown 10/11/2024 8:47 AM EST 10/11/2024 2:12 PM EST Vikram Cox MD LAB BLOOD ORDERABL ES Final Result [facility] [address] [place] [phone] from Last 3 Months or Most Recently Relevant to Health Maintenance Insurance [facility] [employer] INSURANCE DENTAL - [place] PARTIAL (MEDICAID) Care Teams Equipment Monitor Phototypesetting Relationship Specialty Start Date End Date Vikram Solis MD [address] [place] [phone] PCP - General Internal Medicine 08/15/24
== END 2025-08-01 13:08 | disposition home or self-care (01) ==
LOC: HO.US 13:07
PROVIDERS: PCP Internal Medicine; Visit Provider Surgery Vascular Surgery
DX: I83.11 Varicose veins of right lower extremity with inflammation (principal)
CPT/HCPCS: 93970

== ENCOUNTER → 2025-08-01 13:11 | Outpatient (BNV) | payer OTHER, SELFPAY | PROVIDERS: PCP Internal Medicine; Visit Provider Radiology Diagnostic Radiology | DX: I83.11 Varicose veins of right lower extremity with inflammation (principal) | CPT/HCPCS: 93970 ==

== ENCOUNTER 2025-08-14 13:57 | Outpatient (AMB) | payer OTHER, SELFPAY ==
--- OUTSIDE RECORDS SUMMARY | 2024-09-30 11:02 | XMS_ITS ---
Author Organization [facility] Address [address] [place] [address] Care Team Providers Care Sensor Operator Name Role Phone [facility] Primary Care Provider [phone] [facility], [facility] Unavailable [phone] REASON FOR VISIT Looking for appt Encounters Encounter Location Date Provider Diagnosis [facility] [address] [place] [place], [place] [phone] 09/30/2024 [facility] Plan Of Treatment No Information Progress Notes * Christy TAPIAOB:1980 (44 yo F)Acc No.[id number]:09/30/2024 Patient: Marisel BRUNER :1980 A ge:44 Y S ex:Female Address:[address] [place] [address], [phone] * * Date:
--- NOTE | 2025-08-14 14:03 | A.OFFVIS_ITS ---
Intake Visit Reasons: follow up s/p US 08/01/25 Intake Note: Patient presents for follow up US. Both legs are painful but the left is worse. Patient states his toes cramp throughout the day. Allergies No Known Allergies Allergy (Verified 08/14/25 14:06) HPI HPI follow up s/p 08/01/25: Details: The patient is a 44 year old male presenting with worsening bilateral leg s ymptoms. He reports experiencing pain and swelling in his feet, along with tingling that extends up through his legs. Both legs are affected, with the left leg reportedly hurting more than the right. His social history is negative for smoking, and he denies a history of diabetes. The patient reports experiencing a little back pain. He now presents for follow-up with venous insufficiency testing Review of Systems Const All systems reviewed & are unremarkable except as noted in HPI and below Reports no additional complaints ENT Reports Normal hearing present Card Denies chest pain, Denies chest pain at rest, Denies chest pain with activity and Denies pedal edema Resp Denies cough GI Denies abdominal pain Musc Denies abnormal gait, Denies muscle cramps and Denies radiating pain into limb Skin/Breast Denies skin ulcer and Denies wounds Neuro Reports Normal hearing present and Denies abnormal gait Psych Reports no additional complaints Physical Exam Const General: cooperative, healthy appearing and comfortable Orientation/consciousness: oriented to person, oriented to place and oriented to time HEENT Head: Yes normal to inspection Neck Neck: Yes normal visual inspection Carotids: no bruits Chest Chest palpation & inspection: normal inspection of the chest Resp Effort & Inspection: normal respiratory effort and able to speak in complete sentences Auscultation: clear to auscultation bilaterally, no crackles, no rales, no rhonchi and no wheezes Cardio Rate: regular rate Rhythm: regular rhythm Heart sounds: S1 normal heart sound present and S2 normal heart sound present Bruits: no carotid bruits Peripheral pulses: Peripheral pulses 2+ throughout GI Inspection: Yes normal to inspection Skin Wounds: no wounds Hair: normal Neuro General: oriented to person, oriented to place and oriented to time Cranial nerves: Yes CN's II-XII intact bilaterally and Yes Normal hearing present Cognition (Neuro): normal cognition Motor exam (neuro): 5/5 motor strength present throughout Extrem Other: venous exam: No significant superficial varicosities or spider telangiectasias, minimal edema General: No clubbing, No cyanosis and No edema Psych Appearance: grossly normal Mental Status: mental status grossly normal Speech and movement: Normal speech and movement present Results Reviewed Results Reviewed: Brief summary of venous insufficiency testing is as follows: right great saphenous vein: negative right small saphenous vein: negative right accessory vein: none present left great saphenous vein: negative left small saphenous vein: negative left accessory vein: none present Please note there is no evidence of any venous aneurysms or significant tortuosity Assessment & Plan Assessment & Plan (1) Varicose veins of right lower extremity with inflammation: Code(s): I83.11 - Varicose veins of right lower extremity with inflammation Category: Medical Plan: In short patient has venous insufficiency testing is essentially negative. We discussed routine conservative measures including compression elevation and exercise. Concern here is that this may be more musculoskeletal in nature and there may be an element of his history that we are not clear about. Should this persist may benefit from a neurologic evaluation. He will follow up with us on an as-needed basis. Thank you for allowing us to assist in his care. If there are any questions or concerns please do not hesitate to contact us. Coding Level of Care Code Est Pt Level 4 (80874) Diagnoses Varicose veins of right lower extremity with inflammation I83.11
--- OUTSIDE RECORDS SUMMARY | 2025-08-14 18:14 | XMS_ITS | Encounter Summary ---
Author Organization [employer] Address [address] [facility] [address] [place] [address] Care Team Providers Care Spoilage Worker Name Role Phone Vikram Solis MD Primary Care Prov ider Reason for Visit * Reason Onset Date Comments Durable Medical Equipment 07/04/2025 Encounter Details Date Type Department Care Team (Late st Contact Info) Description 07/04/2025 Telephone [facility] [address] [place] [address] Vikram Solis MD [address] [place], [place] [phone] Durable Medical Equipment Social History Tobacco Use Types Packs/Day Years Used Date Smoking Tobacco: Every Day Cigarettes 0.5 26 Started: 1999 Passive Smoke Exposure: Current Smokeless [...] Please provide diagnosis code to support Tc marylin pt requesting a new scrip for DME [...] Care Team (Late st Contact Info) Description 08/19/2025 2:15 PM EST Office Visit [facility] [address] [place] [address] Cale Calderon documented as of this encounter Visit Diagnoses Not on filedocumented in this encounter Additional Health Concerns Assessment Noted Time PHQ-9 Depression Total Score: 4 06/17/20 25 11:52 AM EDT documented as of this encounter Care Teams Spoilage Worker Relationship Specialty Start Date End Date Vikram Solis MD [address] [place] [phone] PCP - General Internal Medicine 08/15/24 documented as of this encounter
--- OUTSIDE RECORDS SUMMARY | 2025-08-14 18:14 | XMS_ITS | Encounter Summary ---
Author Organization [employer] Address [address] [facility] [address] [place] [address] Care Team Providers Care Rod Buster Helper Name Role Phone Vikram Solis MD Primary Care Prov ider Reason for Visit * Reason Onset Date Comments Med Refill 11/14/2024 Encounter Details Date Type Department Care Team (Late st Contact Info) Description 11/14/2024 Telephone [facility] [address] [place] [address] Vikram Solsi MD [address] [place] [address] [phone] Med Refill Social History Tobacco Use Types [...] Miscellaneous Notes * Telephone Encounter - Gurmeet Kb - 11/14/2024 10:27 AM EDT TC from pt requesting medication refill. Medications needing refill : predniSONE (Deltasone) 10 MG tablet To be sent to: [facility]/pharmacy #[id number] - [place], [place] - [address] [facility] documented in this encounter Plan of Treatment Upcoming Encounters Date Type Department Care Team ([facility] st Contact Info) Description 08/19/2025 2:15 PM EST Office Visit [facility] [address] [place] [address] Cale Calderon documented as of this encounter Visit Diagnoses Not on filedocumented in this encounter Additional Health Concerns Assessment Noted Time PHQ-9 Depression Total Score: 0 08/15/20 8:58 AM EST documented as of this encounter Care Teams Rod Buster Helper Relationship Specialty Start Date End Date Vikram Solis MD [address] [place] [address] PCP - General Internal Medicine 08/15/24 documented as of this encounter
--- OUTSIDE RECORDS SUMMARY | 2025-08-14 18:14 | XMS_ITS | Patient Health Record ---
Author Organization [facility] Address [address] [place] [address] Care Team Providers Care Peanut Sorter Name Role Phone [facility] Primary Care Provider [facility], [facility] Unavailable [phone] Reason For Referral No Information Encounters Encounter Location Date Provider Diagnosis [facility] [address] [place], [place] [phone] 09/30/2024 [facility] Plan Of Treatment No Information Insurance Providers Payer Name Payer Address Payer Phone Subscriber Number Group Number Insured Name Patient Relationship to Insured Coverage Start Date Coverage End Date [employer] [address] [place] [id number] Marisel Day Self - patient is the insured
--- OUTSIDE RECORDS SUMMARY | 2025-08-14 18:14 | XMS_ITS | Clinical Summary ---
Author Organization [employer] Address [address] [facility] [address] [place] [address] Care Team Providers Care Gem Cutter Name Role Phone Vikram Solis MD Primary Care Prov ider Allergies No known active allergies Medications * This document contains information received from the source organization and may not represent a complete record from that organization. celecoxib (CeleBREX) 100 MG capsuleIndicat ions:Neck pain,Strain of neck muscle, initial encounter,Stra in of muscle, fascia and tendon of lower back, initial encounter,Cont usion of soft tissue TAKE 1 CAPSULE BY MOUTH TWICE A DAY 60 capsule 12/04/19 25 Active benzocaine-men thol (Chloraseptic) 6-10 MG lozengeIndicat ions:Sore throat (viral) Dissolve 1 lozenge in the mouth every 2 (two) hours if needed for sore throat. 100 lozenge 04/29/20 25 026 Active meloxicam (Mobic) 15 MG tablet Take 1 tablet (15 mg) by mouth Once per day. 30 tablet 11 05/22/20 25 026 Active thiamine (Vitamin B-1) 100 MG tablet Take 1 tablet (100 mg) by mouth Once per day. 90 tablet 3 05/22/20 25 026 Active folic acid (Folvite) 1 MG tablet Take 1 tablet (1 mg) by mouth Once per day. 90 tablet 3 05/22/20 25 026 Active gabapentin (Neurontin) 100 MG capsule TAKE 3 CAPSULES BY MOUTH EVERY 8 HOURS 270 capsule 1 08/12/20 25 Active gabapentin (Neurontin) 100 MG capsule Take 3 capsules (300 mg) by mouth every 8 (eight) hours. 270 capsule 1 05/22/20 025 Discontinued(Re order (will not trigger notification to Pharmacy)) Active Problems Problem Noted Date Diagnosed Date [...] knee high compression stocking 15-20mmhhg Atherosclerosis of cheesh-na ar hussein of both lower extremities with [...] of major depressive disorder without prior episode ([facility]) 02/20/2025 Assessment & Plan (05/29/2025 10:06 AM [...] June due to skin rash went [facility] Hospitalizations:- Pmhx:- Pshx:- All:- Meds:- Urticaria 08/15/2024 Assessment & Plan (12/02/2024 11:40 AM EDT): Provided information to schedule follow up with almond paste molder, call back as needed Assessment & Plan (08/15/2024 9:37 AM EST): Patient refers has to visit er 2-3 times a year due to a skin rash, lesions are not currently active, will refer to almond paste molder Elevated BP without diagnosis of hypertension Encounters Date Type Department Care Team Description 08/11/2025 Refill [facility] [address] [place] [address] Vikram Solis MD 08/08/2025 Telephone [facility] [address] [place] [phone] Maryuri Martinez, AKDEN Med Refill 08/05/2025 Refill [facility] [address] [place] [address] Vikram Solis MD 08/04/2025 10:45 AM EST Telemedicine [facility] [address] [place] [address] Vikram Solis MD Swelling (Primary Dx); Pain in both lower extremities 08/04/2025 Travel 08/01/2025 Orders Only [facility] External Provider, [facility] 08/01/2025 Telephone [facility] [address] [place] [address] Vikram Solis MD 07/07/2025 10:30 AM EST Telemedicine [facility] [address] [place] [address] Vikram Solis MD Swelling (Primary Dx); Pain in both lower extremities 07/07/2025 Travel 07/04/2025 Telephone [facility] [address] [place] [address] Vikram Solis MD chart prep 07/04/2025 Telephone [facility] [address] [place] [phone] Vikram Solis MD Durable Medical Equipment 06/17/2025 11:15 AM EDT Office Visit [facility] [address] [place] [address] Vikram Solis MD Swelling (Primary Dx) 06/17/2025 Travel 06/16/2025 Telephone [facility] [address] [place] [address] Vikram Solis MD chart prep 06/10/2025 Patient Outreach [facility] [address] [place] [address] Vikram Solis MD Pre-visit Planning (Pre visit planning LVM ) 06/10/2025 Orders Only [facility] [address] [place] [address] Vikram Solis MD Atherosclerosis of cheesh-na artery of both lower extremities with intermittent claudication (Primary Dx) 05/29/2025 9:30 AM EDT Telemedicine [facility] [address] [place] [address] Vikram Solis MD Uncomplicated alcohol dependence (CMS/HCC) (HCC) (Primary Dx); Current moderate episode of major depressive disorder without prior episode ([facility]) (HCC) 05/29/2025 Telephone [facility] [address] [place] [address] Vikram Solis MD 05/29/2025 Telephone [facility] [address] [place] [address] Vikram Solis MD 05/29/2025 Travel 05/28/2025 Telephone [facility] [address] [place], [place] [phone] Vikram Solis MD chart prep 05/23/2025 Telephone [facility] [address] [place], [place] [phone] Vikram Solis MD Nurse Triage 05/22/2025 10:45 AM EDT Office Visit [facility] [address] [place], [place] [phone] Vikram Solis MD Claudication ([facility]) (Primary Dx) 05/22/2025 Travel 05/22/2025 Telephone [facility] [address] [place], [place] [phone] Vikram Solis MD Nurse Triage from Last [...] Description 08/19/2025 2:15 PM EST Office Visit [facility] [address] [place], [place] [phone] Cale Calderon Health Maintenance Due Date Last [...] INSUFFICIENCY BILATERAL Routine 08/01/2025 1:29 PM EST AMB REFERRAL TO VASCULAR SURGERY Routine 07/03/2025 Claudication (CMS/HCC) PHOSPHATE ( PHOSPHORUS) Routine 05/30/2025 8:53 AM [...] Recently Relevant to Health Maintenance Results * [facility] US Lower Extremity Venous Insufficiency Bilateral (08/01/2025 1:29 PM EST) 08/01/2025 1:29 PM EST Narrative [facility] - 08/01/2025 2:17 PM EST [address] [address] Ultrasound Report Signed Patient: Marisel Day MR#: [id number] : 1980 Acct:[id number] Age/Sex: 44 / M ADM Date: 08/01/25 Loc: . Attending Dr: Bhargav Mayen MD Ordering Physician: Bhargav Mayen MD Date of Service: 08/01/25 Procedure(s): US venous insuf bilat Accession Number(s): [id number] cc: Vikram Solis MD; Bhargav Mayen MD [...] by: Cornell Horner MD 08/01/2025 02:15 PM [facility] Dictated By: Cornell Horner MD Signed By: <Electronically signed by Cornell Horner MD in OV> 08/01/25 1415 DD/ 1329 TD/TT: 08/01/25 1355 Director Sales: Procedure Note Donotuseinterpreter, Image - 08/01/[address] [address] Ultrasound Report Signed Patient: Kyara Day#: [id number] : 1980Acct:[id number] Age/Sex: 44 / MADM Date: 08/01/25 Loc: HO.US Attending Dr: Bhargav Mayen MD Ordering Physician: Bhargav Mayen MD Date of Service: 08/01/25 Procedure(s): US venous insuf bilat Accession Number(s): [id number] cc: Vikram Solis MD; Bhargav Mayen MD [...] by: Cornell Horner MD 08/01/2025 02:15 PM [facility] Dictated By: Cornell Horner MD Signed By: <Electronically signed by Cornell Horner MD in OV> 08/01/25 1415 DD/ 1329 TD/TT: 08/01/25 1355 Director Sales: [facility] External Provider CV VASC ULAR PROCEDURES Final Result Performing Organization Address [facility]/ZIP Co de Phone Number [facility] [address] [place], [place] [phone] * Referral to Vascular Surgery (07/03/2025) Vikram Cox MD OUTPATIENT REFERRA L ORDERABLES Final Result * Vitamin B12 (Cobalamin) and Folate Panel, Serum (05/30/2025 8:53 AM EDT) Vitamin B12 376 200 - 900 pg/mL [facility] Comment:NORMAL 200-900 PG/ML INDETERMINATE 160-199 PG/ML DEFICIENT < 160 PG/ML Folate 12.0 > or = 4.0 ng/mL [facility] Comment:Reference Values:> o r = [...] ORDERABL ES Final Result Performing Organization Address City/[facility]/ZIP Co de Phone Number [facility] [address] [place] [address] [phone] * TSH W/Reflex to FT4 (05/30/2025 8:53 AM EDT) TSH reflex Free T4 3.62 0.32 - 4.0 uIU/mL [facility] Blood Venous blood specimen / Unknown 05/30/2025 8:53 AM EDT 05/30/2025 2:14 PM EDT Vikram Cox MD LAB BLOOD ORDERABL ES Final Result [facility] [address] [place] [phone] * Phosphate (As Phosphorus) (05/30/2025 8:53 AM EDT) Phosphorus 4.0 2.7 - 4.5 mg/dL [facility] Blood Venous blood specimen / Unknown 05/30/2025 8:53 AM EDT 05/30/2025 2:14 PM EDT Vikram Cox MD LAB BLOOD ORDERABL ES Final Result Performing Organization Address [facility] Co de Phone Number [facility] [address] [place] [phone] * Magnesium (05/30/2025 8:53 AM EDT) Magnesium 2.2 1.6 - 2.6 mg/dL [facility] Blood Venous blood specimen / Unknown 05/30/2025 8:53 AM EDT 05/30/2025 2:14 PM EDT Vikram Cox MD LAB BLOOD ORDERABL ES Final Result Performing Organization Address [facility]/ZIP Co de Phone Number [facility] [address] [place] [phone] * (ABNORMAL) Comprehensive Metabolic Panel (05/30/2025 8:53 AM EDT) Sodium 140 135 - 145 mmol/L [facility] Potassium 4.7 3.3 - 5.1 mmol/L [facility] Chloride 103 96 - 108 mmol/L [facility] Carbon Dioxide 32(H) 22 - 29 mmol/L [facility] Anion Gap 10(L) 12 - 20 [facility] Urea Nitrogen (BUN) 13 9 - 16 mg/dL [facility] Creatinine, Serum 0.93 0.5 - 1.4 mg/dL [facility] Estimated Glomerular Filt Rate >60 [facility] Comment:Chronic Kidney Disea se: Estimated GFR < 60 mL/min/1.27u0Mmdeie Kidney Disease: Estimated GFR < 15 mL/min/1.73m2 Glucose 73 60 - 115 mg/dL [facility] Calcium 9.5 8.4 - 10.2 mg/dL [facility] Bilirubin, Total 0.1 0.0 - 1.0 mg/dL [facility] Aspartate Amino Transferase 42(H) 5 - 37 U/L [facility] Alanine Aminotransferase 26 0 - 40 U/L [facility] Total Protein 5.5(L) 6.5 - 8.0 g/dL [facility] Albumin Level 2.4(L) 3.5 - 5.0 g/dL [facility] Alkaline Phosphatase 89 39 - 117 U/L [facility] Blood Venous blood specimen / Unknown 05/30/2025 8:53 AM EDT 05/30/2025 2:14 PM EDT us Vikram Cox MD LAB BLOOD ORDERABL ES Final Result [facility] [address] [place], [place] [phone] * Hepatitis C Antibody with Reflex to HCV, RNA, Quantitative, Real-Time PCR (10/11/2024 8:47 AM EST) Hepatitis C Antibody Nonreactive Nonreactive [facility] Comment:Antibodies to HCV no t detected; does not exclude early acuteHCV infection. Blood Venous blood specimen / Unknown 10/11/2024 8:47 AM EST 10/11/2024 2:12 PM EST Vikram Cox MD LAB BLOOD ORDERABL ES Final Result Performing Organization Address City/[facility]/ZIP Co de Phone Number [facility] [address] [place] [phone] * HIV-1/2 Antigen and Antibodies, Fourth Generation, with Reflexes (10/11/2024 8:47 AM EST) HIV AB/AG Nonreactive Nonreactive [facility] Comment:HIV-1 p24 Ag and/or HIV-1/HIV-2 Ab not detected.A test result that is nonreactive does not exclude thepossibility of exposure to or infection with HIV-1 and/orHIV-2. Nonreactive results in this assay for individualswith prior exposure to HIV-1 and/or HIV-2 may be due toantigen and antibody levels that are below the limit ofdetection of this assay.[employer] HIV Ag/Ab Combo assay result andsupplemental assay results should be interpreted inconjunction with the patient's clinical presentation,history and other laboratory results. If the results areinconsistent with clinical evidence, additional testing issuggested to confirm the result. Blood Venous blood specimen / Unknown 10/11/2024 8:47 AM EST 10/11/2024 2:12 PM EST us Vikram Cox MD LAB BLOOD ORDERABL ES Final Result Performing Organization Address City/[facility]/ZIP Co de Phone Number [facility] [address] [place] [address] [phone] * Lipid Panel, Standard (10/11/2024 8:47 AM EST) Triglycerides 107 <150 mg/dL [facility] Comment:Desirable Triglyceri de: less than 150 mg/dLBorderline High Triglyceride 150-199 mg/dLHigh Triglyceride: 200-499 mg/dLVery High Triglyceride: greater than or equal to 5OO mg/dL Cholesterol 186 <200 mg/dL [facility] Comment:Desirable Cholestero l: less than 200 mg/dLBorderline High Cholesterol: 200-239 mg/dLHigh Cholesterol: greater than 239 mg/dL LDL Cholesterol Calculated 92 <100 mg/dL [facility] Comment:Desirable LDL: less than 100 mg/dLNear Optimal/Above Optimal LDL: 110- 129 mg/dLBorderline High LDL: 130-159 mg/dLHigh LDL: 160-189 mg/dLVery High LDL: greater than or equal to 190 mg/dL HDL Cholesterol 73 >40 mg/dL [facility] Comment:Desirable HDL: great er than 40 mg/dL Note: This HDL assay may give artificially low results in patients with liver disease. Blood Venous blood specimen / Unknown 10/11/2024 8:47 AM EST 10/11/2024 2:12 PM EST us Vikram Cox MD LAB BLOOD ORDERABL ES Final Result [facility] [address] [place] [phone] from Last 3 Months or Most Recently Relevant to Health Maintenance Insurance [facility] 2 [employer] DENTAL - HSN PARTIAL (MEDICAID) Care Teams Gem Cutter Relationship Specialty Start Date End Date Vikram Solis MD [address] [place] [phone] PCP - General Internal Medicine 08/15/24
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
--- OUTSIDE RECORDS SUMMARY | 2025-08-14 18:14 | XMS_ITS | Encounter Summary ---
Author Organization [employer] Address [address] [facility] 7t [place] [address] Care Team Providers Care Bronc Breaker Name Role Phone Vikram Solis MD Primary Care Prov ider Reason for Visit * Reason Onset Date Comments Med Refill 08/30/2024 Encounter Details Date Type Department Care Team (Late st Contact Info) Description 08/30/2024 Refill [facility] [address] [place] [address] Vikram Solis MD [address] [place] [phone] Urticaria Social History Tobacco Use Types Packs/Day [...] 10 MG tablet To be sent to: [facility]/pharmacy #[id number] documented in this encounter Plan of Treatment Upcoming Encounters Date Type Department Care Team (Late st Contact Info) Description 08/19/2025 2:15 PM EST Office Visit [facility] [address] [place] [address] Cale Calderon documented as of this encounter Visit Diagnoses Diagnosis Urticaria Unspecified urticaria documented in this encounter Additional Health Concerns Assessment Noted Time PHQ-9 Depression Total Score: 0 08/15/20 8:58 AM EST documented as of this encounter Care Teams Bronc Breaker Relationship Specialty Start Date End Date Vikram Solis MD [address] [place] [address] PCP - General Internal Medicine 08/15/24 documented as of this encounter
--- OUTSIDE RECORDS SUMMARY | 2025-08-14 18:14 | XMS_ITS | Encounter Summary ---
Author Organization [employer] Address [address] [facility] [address] [place] [address] Care Team Providers Care Raw Mill Operator Name Role Phone Vikram Solis MD Primary Care Prov ider Reason for Visit * Reason Comments Med Refill Encounter Details Date Type Department Care Team ([facility] st Contact Info) Description 08/11/2025 Refill [facility] [address] [place], [place] [phone] Vikram Solis MD [address] [place] [address] Social History Tobacco Use Types Packs/Day Years [...] Upcoming Encounters Date Type Department Care Team ([facility] st Contact Info) Description 08/19/2025 2:15 PM EST Office Visit [facility]ULT [facility] [address] [place] [address] Cale Calderon documented as of this encounter Visit Diagnoses Not on filedocumented in this encounter Additional Health Concerns Assessment Noted Time PHQ-9 Depression Total Score: 4 06/17/20 25 11:52 AM EDT documented as of this encounter Care Teams Raw Mill Operator Relationship Specialty Start Date End Date Vikram Solis MD [address] [place] [address] PCP - General Internal Medicine 08/15/24 documented as of this encounter
== END 2025-08-14 14:25 | disposition home or self-care (01) ==
LOC: HO.HVS 13:58
PROVIDERS: Visit Provider Surgery Vascular Surgery
DX: I83.11 Varicose veins of right lower extremity with inflammation (principal)
CPT/HCPCS: 99214

== ENCOUNTER → 2025-08-14 13:57 | Outpatient (BNVA) | payer OTHER, SELFPAY | PROVIDERS: Visit Provider Surgery Vascular Surgery | DX: I83.11 Varicose veins of right lower extremity with inflammation (principal) | CPT/HCPCS: 99212 ==